=== PATIENT | male | born 1960 | race Caucasian/White ===

== ENCOUNTER 2019-07-17 04:33 | Emergency (ER) | payer SELFPAY ==
[2019-07-17 04:38] VITALS: BP 168/100; RESP 16; TEMP 36.8; O2SAT 100; BMI 20.9
--- NOTE | 2019-07-17 04:56 | ED_ITS ---
HPI - Abdominal Pain General: Chief Complaint: Abdominal Pain Stated Complaint: BLOOD IN STOOL Time Seen by Provider: 07/17/19 04:43 History of Present Illness: MD elicited complaint: abdominal pain Pertinent past history: gastrointestinal bleeding Onset (ago): day(s) (1) Quality: cramping Radiation: none Context: history of similar episodes Associated Symptoms: Reports constipation and nausea; Denies chills, dysuria, fever(s), hematuria and vomiting Review of Systems Const: Denies: fever or chills ENMT: Denies: painful swallowing, bleeding gums, dental pain, Change in hearing, nose bleeds, post nasal drip or facial/sinus pain Card: Denies: chest pain, palpitations, irregular heart rhythm, edema, swelling of feet/ankles, shortness of breath on exertion or shortness of breath when lying down Resp: Denies: shortness of breath, productive cough, non-productive cough or wheezing GI: Reports: nausea and constipation; Denies: vomiting : Denies: difficulty urinating, painful urination, urinary frequency, urinary urgency or blood in urine Musc: Denies: neck pain, back pain, redness or joint warmth Skin/Breast: Denies: rash, itching or redness Neuro: Denies: headache, dizziness, vertigo, confusion or seizure-like activity Psych: Denies: anxiety, visual hallucinations or auditory hallucinations PFSH ED PFSH: Statuses (acute, chronic, etc) shown below reflect problem list status as previously entered and may not be historically accurate Medical History (Updated 07/17/19 @ 06:17 by Husam Moreno DO) Back pain (Acute) BPH (benign prostatic hyperplasia) (Acute) Social History Smoking and tobacco status: never smoked Alcohol intake: never Physical Exam Const: GENERAL APPEARANCE: well developed ORIENTATION/CONSCIOUSNESS: Yes oriented to person, Yes oriented to place and Yes oriented to time HENMT: COMMON NORMALS: normocephalic, external ears normal and external nose normal HEAD & SCALP: normocephalic; no scalp tenderness FACE & SINUS: normal facial exam NOSE: external nose normal and no nasal discharge EXTERNAL EAR: Yes external ears normal Eye: COMMON NORMALS: PERRL, EOMs intact bilaterally and conjunctivae normal EYELID: eyelids normal CONJUNCTIVA: Yes conjunctivae normal PUPIL: Yes PERRL Neck/C-Spine: COMMON NORMALS: full ROM GENERAL: No tracheal deviation CERVICAL SPINE: Yes normal cervical lordosis and No cervical spine tenderness Chest: COMMONS NORMALS: inspection of chest normal CHEST: No tenderness Resp: COMMON NORMALS: clear to auscultation bilaterally EFFORT & INSPECTION: No tachypneic, No respiratory distress, No retractions, No uses accessory muscles and No tracheal deviation AUSCULTATION: clear to auscultation bilaterally, no rhonchi, no wheezes and lung sounds not diminished Cardio: COMMON NORMALS: regular rate and regular rhythm RATE: regular rate RHYTHM: regular rhythm HEART SOUNDS: no murmurs PERIPHERAL PULSES: rad ial pulses present GI: INSPECTION: No abdominal distension AUSCULTATION: No hyperactive bowel sounds and No hypoactive bowel sounds PALPATION: Yes tender, No guarding and No rigid PERCUSSION: no dullness to percussion and no tympanic to percussion : COMMON NORMALS: Yes no CVA tenderness BLADDER/KIDNEY EXAM: Yes no CVA tenderness Back/Pelvis: COMMON NORMALS: no CVA tenderness Neuro: SENSORIUM/ORIENTATION: Yes oriented to person, Yes oriented to place and Yes oriented to time Psych: COMMON NORMALS: mental status grossly normal Skin: COMMON NORMALS: no rashes or lesions noted GENERAL SKIN EXAM: no rashes or lesions noted Course ED course: 59-year-old male with multiple belly surgeries presents with belly pain, that essentially is resolved now, and bright red blood in his stool. His rectal exam was negative for blood, even occult blood. His belly pain is improved. His CT is essentially negative. Vital Signs: Vital signs: Vital Signs Temperature 98.2 F 07/17/19 04:38 Pulse Rate 61 07/17/19 06:52 Respiratory Rate 16 07/17/19 06:52 Blood Pressure 119/82 07/17/19 06:52 Pulse Oximetry 98 07/17/19 06:52 MDM - Abdominal Pain Lab Data: Labs: Lab Results 07/17/19 07/17/19 07/17/19 Range/Units 05:07 05:07 05:07 WBC 5.7 (4.0-10.0) 10^3/ uL RBC 4.72 (4.1-5.3) 10^6/u L Hgb 11.3 L (11.7-16.6) g/dL Hct 36.9 L (42.0-52.0) % MCV 78.2 L (80-94) fL MCH 23.9 L (28.0-34.0) pg MCHC 30.6 (30.0-36.0) g/dL RDW 14.7 (12.1-15.1) % Plt Count 278 (130-400) 10^3/c mm MPV 10.4 (7.4-10.4) fL Neut % (Auto) 47.5 % Lymph % (Auto) 41.0 % [place] % (Auto) 7.4 % Eos % (Auto) 3.0 % Baso % (Auto) 0.9 % Neut # (Auto) 2.7 (1.8-7.7) 10^3/u L Lymph # (Auto) 2.3 (0.8-4.8) 10^3/u L [place] # (Auto) 0.4 (0.2-0.9) 10^3/u L Eos # (Auto) 0.2 (0.0-0.8) 10^3/u L Baso # (Auto) 0.1 (0.0-0.1) 10^3/u L Nucleated RBC % (a uto) 0 % Nucleated RBCs # 0.0 /100WBC PT 15.00 H (10.5-13.3) SECO NDS INR 1.14 (0.8-1.2) APTT 30.5 (23.9-36.7) SECO NDS Sodium 141 (136-145) mmol/L Potassium 3.4 L (3.5-5.1) mmol/L Chloride 106 (98-107) mmol/L Carbon Dioxide 23 (22-29) mmol/L Anion Gap 15.4 (5-19) BUN 19 (6-20) mg/dL Creatinine 0.9 (0.7-1.2) mg/dL GFR Calculation 87.0 L (90-130) mL/min Glucose 134 H (74-109) mg/dL Calcium 9.7 (8.5-10.5) mg/dL Total Bilirubin 0.3 (0.15-1.2) mg/dL AST 15 (0-40) U/L ALT 10 (0-41) U/L Alkaline Phosphata se 46 (40-130) IU/L Total Protein 6.5 L (6.6-8.7) g/dL Albumin 4.4 (3.5-5.2) g/dL Globulin 2.1 (1.3-4.6) g/dL Lipase 62 H (13-60) U/L Discharge Plan Discharge Patient Disposition: Home, Self-Care Clinical Impression: GI (gastrointestinal bleed) Qualifiers: GI bleed type/associated pathology: unspecified gastrointestinal hemorrhage type Qualified Code(s): K92.2 - Gastrointestinal hemorrhage, unspecified Condition: Stable Prescriptions: No Action Botox 100 unit recon soln 200 unit IM .month RF: 0 docusate sodium 100 mg capsule 100 mg PO BID PRN (Reason: Constipation) RF: 0 acetaminophen [Tylenol Extra Strength] 500 mg tablet 500 mg PO Q4H PRN (Reason: Pain, Mild) RF: 0 tamsulosin [Flomax] 0.4 mg capsule 0.4 mg PO DAILY RF: 0 amitriptyline 75 mg tablet 75 mg PO DAILY RF: 0 ferrous sulfate 325 mg (65 mg iron) tablet 325 mg PO DAILY RF: 0 topiramate 50 mg tablet 50 mg PO BID RF: 0 cyclobenzaprine 10 mg tablet 10 mg PO BID PRN (Reason: Muscle Spasm) RF: 0 finasteride 5 mg tablet 5 mg PO ONCE Qty: 30 RF: 5 tramadol 50 mg tablet 50 mg PO DAILY PRN (Reason: pain) Qty: 30 RF: 0 propranolol 20 mg tablet 10 mg PO BID Qty: 60 RF: 11 Discharge Orders: Discharge Order (Routine); Ordered 07/17/19 Ordered By: Husam Moreno Referrals: Ulices Gerard DO [Primary Care Provider] - 4-7 days Discharge Diet: Advance as tolerated Discharge Activity: Increase activity as tolerated Patient Instructions: Gastrointestinal Bleeding (ED) Activity Restrictions/Additional Instructions: Return for fever greater than 100, worsening belly pain, continued rectal bleeding with passage of clots, vomiting, other concerning symptoms. Discharge Date/Time: 07/17/19 06:53 Coding Level of Care Code ED Necktie Centralizing Machine Operator for Augustina Oneill
--- NOTE | 2019-07-17 04:57 | CTR_ITS ---
PROCEDURE INFORMATION: Exam: CT Abdomen And Pelvis With Contrast Exam date and time: 07/17/2019 5:07 AM Age: 59 years old Clinical indication: Other: Blood in stool; Prior surgery; Surgery date: 6+ months; Surgery type: Gb; Additional info: Gi bleeding TECHNIQUE: Imaging protocol: Computed tomography of the abdomen and pelvis with intravenous contrast. Total DLP: 516.18 mGy-cm Radiation optimization: All CT scans at this facility use at least one of these dose optimization techniques: automated exposure control; mA and/or kV adjustment per patient size (includes targeted exams where dose is matched to clinical indication); or iterative reconstruction. Contrast material: OMNI 300; Contrast volume: 95 ml; Contrast route: IV; COMPARISON: No relevant prior studies available. FINDINGS: Liver: Normal. No mass. Gallbladder and bile ducts: Status post cholecystectomy. The common bile duct is mildly prominent measuring 9.1 mm in its midportion tapering to normal caliber within the pancreas. Pancreas: Normal. No ductal dilation. Spleen: Normal. No splenomegaly. Adrenals: Normal. No mass. Kidneys and ureters: There is a 1.5 cm hypoattenuation lesion seen on the lower pole of the right kidney compatible with a simple cyst. A 4 mm hypoattenuation lesions seen in the lower pole of the left kidney compatible with a simple cyst. Stomach and bowel: Suture material is seen along the gastric wall, the patient is status post gastric bypass. Suture material is seen within the small bowel. Appendix: Suture material is seen on the cecum likely representing appendectomy. Intraperitoneal space: Unremarkable. No free air. No significant fluid collection. Vasculature: Unremarkable. No abdominal aortic aneurysm. Lymph nodes: Unremarkable. No enlarged lymph nodes. Bladder: There is mild bladder wall thickening although the bladder is incompletely distended. Reproductive: Unremarkable as visualized. Bones/joints: Unremarkable. No acute fracture. Soft tissues: Unremarkable. CT/CT abdomen pelvis w con* [id number] IMPRESSION: 1. There are no acute abdominal findings. 2. Simple appearing renal cysts seen in the lower poles, the largest seen on the right measuring 1.5 cm. No further workup needed. COMMENT: Consistent with the [employer]'s Incidental Findings Committee white paper (J Am Rashida Radiol 2018): Any incidental cystic renal lesion classified in this report as too small to characterize or simple appearing is likely a benign cyst. No follow-up imaging is recommended for these lesions per consensus recommendations based on imaging criteria. Radiation Dose CTDIVOL = (mGy): DLP = 516.18 (mGy-cm)
[2019-07-17 05:14] LABS: Basophils # 0.1 10^3/uL (0.0-0.1); Basophils % 0.9 %; Eosinophils # 0.2 10^3/uL (0.0-0.8); Hematocrit 36.9 % (42.0-52.0); Hemoglobin 11.3 g/dL (11.7-16.6); Lymphocytes # 2.3 10^3/uL (0.8-4.8); Mean Corpuscular HGB Conc 30.6 g/dL (30.0-36.0); Mean Corpuscular Hemoglobin 23.9 pg (28.0-34.0); Mean Corpuscular Volume 78.2 fL (80-94); Mean Platelet Volume 10.4 fL (7.4-10.4); Monocytes # 0.4 10^3/uL (0.2-0.9); Monocytes % 7.4 %; Neutrophils # 2.7 10^3/uL (1.8-7.7); Neutrophils % 47.5 %; Nucleated Red Blood Cells % 0 %; Platelet Count 278 10^3/cmm (130-400); Red Blood Count 4.72 10^6/uL (4.1-5.3); Red Cell Distribution Width 14.7 % (12.1-15.1); White Blood Count 5.7 10^3/uL (4.0-10.0)
[2019-07-17] MEDS: iohexol 300 mg/mL 100 mL Btl IV (05:16)
[2019-07-17 05:34] LABS: Alanine Aminotransferase 10 U/L (0-41); Albumin Level 4.4 g/dL (3.5-5.2); Alkaline Phosphatase 46 IU/L (40-130); Anion Gap 15.4 (5-19); Aspartate Amino Transferase 15 U/L (0-40); Blood Urea Nitrogen 19 mg/dL (6-20); Calcium 9.7 mg/dL (8.5-10.5); Carbon Dioxide 23 mmol/L (22-29); Chloride 106 mmol/L (98-107); Globulin 2.1 g/dL (1.3-4.6); Glucose 134 mg/dL (74-109); Lipase 62 U/L (13-60); Potassium 3.4 mmol/L (3.5-5.1); Sodium 141 mmol/L (136-145); Total Bilirubin 0.3 mg/dL (0.15-1.2); Total Protein 6.5 g/dL (6.6-8.7)
[2019-07-17 05:40] LABS: INR 1.14 (0.8-1.2); Partial Thromboplastin Time 30.5 SECONDS (23.9-36.7)
[2019-07-17 06:13] VITALS: BP 119/82; PULSE 60; RESP 16; O2SAT 100
[2019-07-17 06:52] VITALS: BP 119/82; PULSE 61; RESP 16; O2SAT 98
== END 2019-07-17 06:53 | disposition home or self-care (01) ==
PROVIDERS: Emergency Provider Emergency Medicine; Family Provider Family Medicine; PCP Family Medicine
DX: K92.2 Gastrointestinal hemorrhage, unspecified (principal)
CPT/HCPCS: 36415; 74177; 80053; 83690; 85025; 85610; 85730; 99281; Q9967

== ENCOUNTER → 2019-07-21 10:06 | Outpatient (BNVA) | payer SELFPAY | PROVIDERS: Family Provider Family Medicine; PCP Family Medicine; Visit Provider Specialist | DX: G43.711 Chronic migraine without aura, intractable, with status migrainosus (principal) | CPT/HCPCS: 64615 ==

== ENCOUNTER → 2019-09-08 10:44 | Outpatient (BNVA) | payer SELFPAY | PROVIDERS: Family Provider Family Medicine; PCP Family Medicine; Visit Provider Family Medicine | DX: Z01.89 Encounter for other specified special examinations (principal) | CPT/HCPCS: 81001 ==

== ENCOUNTER → 2019-10-20 11:37 | Outpatient (BNVA) | payer SELFPAY | PROVIDERS: Family Provider Family Medicine; PCP Family Medicine; Visit Provider Specialist | DX: G43.711 Chronic migraine without aura, intractable, with status migrainosus (principal) | CPT/HCPCS: 64615 ==

== ENCOUNTER → 2020-01-12 09:47 | Outpatient (BNVA) | payer SELFPAY | PROVIDERS: Family Provider Family Medicine; PCP Family Medicine; Visit Provider Specialist | DX: G43.711 Chronic migraine without aura, intractable, with status migrainosus (principal) | CPT/HCPCS: 64615 ==

== ENCOUNTER → 2020-05-24 10:26 | Outpatient (BNVA) | payer SELFPAY | PROVIDERS: Family Provider Family Medicine; PCP Family Medicine; Visit Provider Specialist | DX: G43.711 Chronic migraine without aura, intractable, with status migrainosus (principal) | CPT/HCPCS: 64615; J0585 ==

== ENCOUNTER → 2020-11-08 08:32 | Outpatient (BNVA) | payer SELFPAY | PROVIDERS: Family Provider Family Medicine; PCP Family Medicine; Visit Provider Family Medicine | DX: D64.9 Anemia, unspecified (principal); F41.9 Anxiety disorder, unspecified | CPT/HCPCS: 36415; 80053; 85025 ==

== ENCOUNTER 2021-09-08 08:51 | Emergency (ER) | payer MEDICAID, SELFPAY ==
[2021-09-08 09:07] VITALS: BP 158/92; PULSE 57; RESP 16; TEMP 36.6; O2SAT 100; BMI 20.9
[2021-09-08 09:21] VITALS: BP 158/92; PULSE 59; RESP 16; O2SAT 100
--- NOTE | 2021-09-08 09:24 | ED_ITS ---
HPI - Male Genitourinary General: Chief complaint: General Medical Stated complaint: painful urination Time Seen by Provider: 09/08/21 08:54 Source: patient Mode of arrival: ambulatory Limitations: no limitations History of Present Illness: Patient is a 61-year-old male who presents to ED today stating yesterday he had an episode of penile pain and painful urination. He states currently he is not having any pain to his penis. Patient has chronic lower back pain that he sees his PCP Dr. Gerard for and is chronically on Tramadol-states this seems to be at baseline. Patient reports he thought the tip of his penis was swollen yesterday. He is not having any penile discharge or lesions. He is not having any scrotal/testicular pain, swelling, redness. No injury or trauma. He has not noticed any flank pains. He has no hematuria. Has not noticed any changes in odor. Onset (ago): hour(s) Duration: improved Relieving factors: none Exacerbating factors: urination Associated symptoms: Reports dysuria; Deny hematuria, nausea or vomiting Review of Systems Const: Denies: fever(s), chills, body aches, fatigue or malaise Card: Denies: chest pain Resp: Denies: dyspnea GI: Denies: abdominal pain, nausea, vomiting, diarrhea, change in bowel habits or change in stool character : Reports: dysuria; Denies: flank pain, difficulty urinating, urinary frequency, urinary urgency, change in urine stream, hematuria, genital lesions, penile discharge, testicular pain, testicular mass or scrotal swelling Musc: Reports: back pain (low back-chronic); Denies: neck pain, extremity pain or joint pain Skin/Breast: Denies: rash Neuro: Denies: headache(s), numbness in extremities, weakness in extremities, sensory changes or dizziness PFS ED PFSH: Medical History Anemia Back pain BPH (benign prostatic hyperplasia) Hypertension Migraine Tremor Family History Other Suicide Social History Alcohol intake: never History of recent travel: No Physical Exam Const: COMMON NORMALS: no acute distress, average body habitus, patient oriented x3, no limitations, healthy appearing, alert and well nourished Resp: COMMON NORMALS: normal respiratory effort and clear to auscultation bilaterally AUSCULTATION: clear to auscultation bilaterally Cardio: COMMON NORMALS: regular rate and regular rhythm RATE: regular rate RHYTHM: regular rhythm GI: COMMON NORMALS: Normal to inspection, nondistended, normoactive bowel sounds present, Soft to palpation, non-tender, No hepatosplenomegaly present and no masses INSPECTION: Yes scar (vertical midline scar) AUSCULTATION: Yes normoactive bowel sounds PALPATION: Yes Soft to palpation and Yes No hepatosplenomegaly present : COMMON NORMALS: Yes no CVA tenderness BLADDER/KIDNEY EXAM: Yes no CVA tenderness PENIS: normal penis and circumcised MEATUS: meatus normal and no meatla discharge SCROTUM: Yes testes descended bilaterally, No erythematous, No ecchymosis and No edematous TESTES: Yes testicular lie normal and No testicular swelling Back/Pelvis: COMMON NORMALS: no CVA tenderness, thoracic and lumbar spine normal to inspection, no thoracic nor lumbar tenderness and thoraco-lumbar ROM normal Extremity: COMMON NORMALS: normal to inspection GENERAL: Yes normal exam except as noted Neuro: APRIL COMA SCALE: document GCS findings April coma scale eye opening: Spontaneous [place] coma scale verbal response: Orientated April coma scale motor response: Obey commands April coma scale total score: 15 COMMON NORMALS: patient oriented x3, moves all extremities, no focal motor deficits, no sensory deficits noted and gait normal SENSORIUM/ORIENTATION: Yes alert Skin: COMMON NORMALS: no rashes or lesions noted GENERAL SKIN EXAM: no rashes or lesions noted Course Vital Signs: Vital signs: Vital Signs Temperature 97.9 F 09/08/21 09:07 Pulse Rate 59 L 09/08/21 09:21 Respiratory Rate 16 09/08/21 09:21 Blood Pressure 158/92 09/08/21 09:21 Pulse Oximetry 100 09/08/21 09:21 [facility] - Male Medical Decision Making Patient here with an episode of penile pain and painful urination yesterday. Patient is currently not having any penile pain. He states he felt like the tip of his penis was swollen yesterday. He has a normal genitalia exam today. Patient has not had any penile discharge. He denies sexual activity/new sexual partners/concerns for STDs. Patient is still able to urinate normally. He does take Flomax daily for BPH. He complained of some lower back pain however tells me this is chronic. Recommend he follow-up with Dr. Gerard in the next few days for re-evaluation if symptoms recur/persist. He was instructed to return to the emergency department for severe flank pain, fevers, repetitive episodes of vomiting, inability to urinate, hematuria, or any other concerns he may have. Lab Data : 09/08/21 09:30 09/08/21 09:30 Laboratory Results WBC 5.5 10^3/uL (4.0-10.0) 09/08/21 09:30 RBC 4.25 10^6/uL (4.1-5.3) 09/08/21 09:30 Hgb 11.9 g/dL (11.7-16.6) 09/08/21 09:30 Hct 38.0 % (42.0-52.0) L 09/08/21 09:30 MCV 89.4 fl (80-94) 09/08/21 09:30 MCH 28.0 pg (28.0-34.0) 09/08/21 09:30 MCHC 31.3 g/dL (30.0-36.0) 09/08/21 09:30 RDW 12.9 % (12.1-15.1) 09/08/21 09:30 Plt Count 262 10^3/cmm (130-400) 09/08/21 09:30 MPV 10.7 fL (7.4-10.4) H 09/08/21 09:30 Neut % (Auto) 55.9 % 09/08/21 09:30 Lymph % (Auto) 28.2 % 09/08/21 09:30 [place] % (Auto) 10.1 % 09/08/21 09:30 Eos % (Auto) 4.0 % 09/08/21 09:30 Baso % (Auto) 1.6 % 09/08/21 09:30 Neut # (Auto) 3.05 10^3/uL (1.8-7.7) 09/08/21 09:30 Lymph # (Auto) 1.5 10^3/uL (0.8-4.8) 09/08/21 09:30 [place] # (Auto) 0.6 10^3/uL (0.2-0.9) 09/08/21 09:30 Eos # (Auto) 0.2 10^3/uL (0.0-0.8) 09/08/21 09:30 Baso # (Auto) 0.1 10^3/uL (0.0-0.1) 09/08/21 09:30 Nucleated RBC % (auto) 0 % 09/08/21 09:30 Nucleated RBCs # 0.0 /100WBC 09/08/21 09:30 Sodium 140 mmol/L (136-145) 09/08/21 09:30 Potassium 3.7 mmol/L (3.5-5.1) 09/08/21 09:30 Chloride 105 mmol/L (98-107) 09/08/21 09:30 Carbon Dioxide 27 mmol/L (22-29) 09/08/21 09:30 Anion Gap 11.7 (5-19) 09/08/21 09:30 BUN 23 mg/dL (6-20) H 09/08/21 09:30 Creatinine 0.9 mg/dL (0.7-1.2) 09/08/21 09:30 GFR Calculation 86.4 mL/min (90-130) L 09/08/21 09:30 Glucose 94 mg/dL (65-115) 09/08/21 09:30 Calculated Osmolality 293 mOsm/kg (285-295) 09/08/21 09:30 Calcium 9.3 mg/dL (8.5-10.5) 09/08/21 09:30 Total Bilirubin 0.2 mg/dL (0.15-1.2) 09/08/21 09:30 AST 16 U/L (0-40) 09/08/21 09:30 ALT 19 U/L (0-41) 09/08/21 09:30 Alkaline Phosphatase 69 IU/L (40-130) 09/08/21 09:30 Total Protein 5.9 g/dL (6.6-8.7) L 09/08/21 09:30 Albumin 3.9 g/dL (3.5-5.2) 09/08/21 09:30 Globulin 2.0 g/dL (1.3-4.6) 09/08/21 09:30 Urine Color Yellow (Yellow) 09/08/21 09:56 Urine Appearance Clear (CLEAR) 09/08/21 09:56 Urine pH 7 (5-7) 09/08/21 09:56 Ur Specific [place] 1.015 (1.005-1.030) 09/08/21 09:56 Urine Protein Neg (Negative) 09/08/21 09:56 Urine Glucose (UA) Norm (Normal) 09/08/21 09:56 Urine Ketones Negative (Negative) 09/08/21 09:56 Urine Blood Neg (Negative) 09/08/21 09:56 Urine Nitrate Negative (Negative) 09/08/21 09:56 Urine Bilirubin Neg (Negative) 09/08/21 09:56 Urine Urobilinogen Norm mg/dL (Negative) 09/08/21 09:56 Ur Leukocyte Esterase Negative (Negative) 09/08/21 09:56 Discharge Plan Discharge Patient Disposition: Home Clinical Impression: Penile pain Condition: Stable Prescriptions: No Action Excedrin Extra Strength 250-250-65 mg tablet 1 tab PO Q6H PRN0RF Complete Nutritional Drink 0.04-1.05 gram-kcal/mL liquid PO DAILY 0RF topiramate 50 mg tablet 50 mg PO BID Qty: 60 11RF ferrous sulfate 325 mg (65 mg iron) tablet 325 mg PO DAILY Qty: 30 11RF cyclobenzaprine 10 mg tablet 10 mg PO BID PRN (Reason: Muscle Spasm) Qty: 60 3RF Botox 100 unit recon soln 200 unit IM .month 0RF docusate sodium 100 mg capsule 100 mg PO BID PRN (Reason: Constipation) 0RF acetaminophen [Tylenol Extra Strength] 500 mg tablet 500 mg PO Q4H PRN (Reason: Pain, Mild) 0RF amitriptyline 75 mg tablet 75 mg PO DAILY Qty: 30 11RF chlorpromazine 10 mg tablet 10 mg PO TID Qty: 90 3RF tramadol 50 mg tablet 50 mg PO DAILY PRN (Reason: pain) Qty: 30 0RF promethazine-DM 6.25-15 mg/5 mL syrup 5 ml PO Q6H PRN (Reason: cough) Qty: 118 1RF propranolol 20 mg tablet 10 mg PO BID Qty: 60 11RF tamsulosin 0.4 mg capsule See Rx Instructions .ROUTE .COMPLEX Qty: 60 11RF Dose Instruction: TAKE 2 CAPSULES BY MOUTH ONCE DAILY Rx Instructions: TAKE 2 CAPSULES BY MOUTH ONCE DAILY finasteride 5 mg tablet See Rx Instructions .ROUTE .COMPLEX Qty: 30 11RF Dose Instruction: TAKE ONE TABLET BY MOUTH ONCE DAILY Rx Instructions: TAKE ONE TABLET BY MOUTH ONCE DAILY Discharge Orders: Discharge ED (Routine); Ordered 09/08/21 Ordered By: Qiana Espinal Referrals: Ulices Gerard, [Primary Care Provider] - Activity Restrictions/Additional Instructions: As we discussed please follow-up with your primary care provider this week if symptoms return or persist. You need to return to the emergency department for severe flank pain, abdominal pain, inability to urinate, blood in your urine, fevers, repetitive episodes of vomiting, severe scrotal/testicular pain, or any other concerns you may have. Coding Level of Care Code ED Retail Wireless Sales Consultant for Augustina Fwd Exam Comprehensive
[2021-09-08 10:11] LABS: Add Urine Microscopic? NO; Charge for UA Resulting for Rev
[2021-09-08 10:13] LABS: Basophils # 0.1 10^3/uL (0.0-0.1); Basophils % 1.6 %; Eosinophils # 0.2 10^3/uL (0.0-0.8); Hemoglobin 11.9 g/dL (11.7-16.6); Lymphocytes # 1.5 10^3/uL (0.8-4.8); Lymphocytes % 28.2 %; Mean Corpuscular HGB Conc 31.3 g/dL (30.0-36.0); Mean Corpuscular Volume 89.4 fl (80-94); Mean Platelet Volume 10.7 fL (7.4-10.4); Monocytes # 0.6 10^3/uL (0.2-0.9); Monocytes % 10.1 %; Neutrophils # 3.05 10^3/uL (1.8-7.7); Neutrophils % 55.9 %; Nucleated Red Blood Cells % 0 %; Platelet Count 262 10^3/cmm (130-400); Red Blood Count 4.25 10^6/uL (4.1-5.3); Red Cell Distribution Width 12.9 % (12.1-15.1); White Blood Count 5.5 10^3/uL (4.0-10.0)
[2021-09-08 10:36] LABS: Alanine Aminotransferase 19 U/L (0-41); Albumin Level 3.9 g/dL (3.5-5.2); Alkaline Phosphatase 69 IU/L (40-130); Anion Gap 11.7 (5-19); Aspartate Amino Transferase 16 U/L (0-40); Blood Urea Nitrogen 23 mg/dL (6-20); Calcium 9.3 mg/dL (8.5-10.5); Carbon Dioxide 27 mmol/L (22-29); Chloride 105 mmol/L (98-107); Glomerular Filtration Rate 86.4 mL/min (90-130); Glucose 94 mg/dL (65-115); Osmolality Calculated 293 mOsm/kg (285-295); Potassium 3.7 mmol/L (3.5-5.1); Sodium 140 mmol/L (136-145); Total Bilirubin 0.2 mg/dL (0.15-1.2); Total Protein 5.9 g/dL (6.6-8.7)
[2021-09-08 10:51] LABS: Urine Appearance Clear (CLEAR); Urine Color Yellow (Yellow)
[2021-09-08 10:52] LABS: Bilirubin Urine Neg (Negative); Blood Urine Neg (Negative); Glucose Urine UA Norm (Normal); Ketones Urine Negative (Negative); Leukocyte Esterase Urine Negative (Negative); Nitrate Urine Negative (Negative); Protein Urine Neg (Negative); Specific Gravity, Urine 1.015 (1.005-1.030); Urobilinogen Urine Norm (Negative); pH Urine 7 (5-7)
== END 2021-09-08 11:28 | disposition home or self-care (01) ==
PROVIDERS: Emergency Provider Physician Assistant; PCP Family Medicine
DX: N48.89 Other specified disorders of penis (principal); I10 Essential (primary) hypertension
CPT/HCPCS: 80053; 81003; 85025; 99283

== ENCOUNTER 2021-10-22 03:28 | Emergency (ER) | payer MEDICAID, SELFPAY ==
[2021-10-22] VITALS (7 sets, daily range): BP systolic 124–150; BP diastolic 78–89; PULSE 48–62; RESP 14–18; TEMP 36.3; O2SAT 97–100; BMI 20.2
--- NOTE | 2021-10-22 03:35 | ECG_ITS ---
[facility] Test Date: 2021-10-22 Pat Name: Philippe Stewart Department: Room: Gender: Male Can Technician: : 1960 Requested By: Radha Man Order Number: [id number] Whitney MD: Braxton Keane M.D. Measurements Intervals [place] Rate: 53 P: 50 WI: 135 QRS: 78 QRSD: 113 T: 45 QT: 388 QTc: 367 Interpretive Statements SINUS BRADYCARDIA MODERATE INTRAVENTRICULAR CONDUCTION DELAY [110+ ms QRS DURATION] Compared to ECG 07/09/2014 22:34:14 NO SIGNIFICANT CHANGES SEEN Electronically Signed On 10-22-2021 22:32:21 CDT by Braxton Keane M.D. [id number] f
--- NOTE | 2021-10-22 03:37 | XRR_ITS ---
PROCEDURE INFORMATION: Exam: XR Chest Exam date and time: 10/22/2021 3:39 AM Age: 61 years old Clinical indication: Sternal or substernal pain; Additional info: Cp TECHNIQUE: Imaging protocol: XR of the chest. Views: 1 view. COMPARISON: CT abdomen pelvis w con* [id number] 07/17/2019 5:44 AM FINDINGS: Lungs: No focal airspace disease. Pleural spaces: Unremarkable. No pleural effusion. No pneumothorax. Heart/Mediastinum: Cardiomediastinal silhouette is within normal limits. Bones/joints: Unremarkable. XR/XR chest 1V portable [id number] IMPRESSION: No acute cardiopulmonary abnormality.
--- NOTE | 2021-10-22 03:37 | ECG_ITS ---
[facility] Test Date: 2021-10-22 Pat Name: Philippe Stewart Department: Room: Gender: Male Loan Workout Officer: : 1960 Requested By: Radha Man Order Number: [id number] Whitney MD: Braxton Keane M.D. Measurements Intervals [place] Rate: 49 P: 57 MD: 143 QRS: 77 QRSD: 110 T: 45 QT: 403 QTc: 366 Interpretive Statements SINUS BRADYCARDIA Compared to ECG 07/09/2014 22:34:14 Intraventricular conduction delay no longer present Electronically Signed On 10-22-2021 20:50:25 CDT by Braxton Keane M.D. [id number]
--- NOTE | 2021-10-22 03:42 | W.ED.CHESTPA ---
HPI - Chest Pain General: Chief Complaint: Chest Pain Stated Complaint: Chest Pains Time Seen by Provider: 10/22/21 03:40 Source: patient Mode of arrival: ambulatory Limitations: no limitations History of Present Illness: 61-year-old male states that since 10 PM last night been having some sharp pains in the left side of his chest. He states that its been constant nature worse with palpation improved with rest he is going through mild abdominal pain as well denies any dyspnea denies any diaphoresis denies any vomiting or diarrhea Associated symptoms: Deny abdominal pain, dyspnea, fever(s), nausea or vomiting Review of Systems Const: Denies: fever(s), chills, body aches or change in appetite Eyes: Denies: blurry vision or eye discomfort ENMT: Denies: throat pain or dental pain Card: Reports: chest pain Resp: Denies: dyspnea GI: Denies: abdominal pain, nausea, vomiting or diarrhea : Denies: dysuria Musc: Denies: neck pain or back pain Skin/Breast: Denies: rash Neuro: Denies: headache(s) Psych: Denies: depression Keyur/Lymph: Denies: easy bruising All/Imm: Denies: urticaria PFSH ED PFSH: Medical History Anemia Back pain BPH (benign prostatic hyperplasia) Hypertension Migraine Tremor Family History Other Suicide Social History Alcohol intake: never History of recent travel: No Physical Exam Const: COMMON NORMALS: no acute distress, patient oriented x3 and healthy appearing HENMT: COMMON NORMALS: normocephalic and atraumatic HEAD & SCALP: normocephalic and atraumatic Eye: COMMON NORMALS: Equal, round and reactive pupils present and EOMs intact bilaterally PUPIL: Yes Equal, round and reactive pupils present Neck/C-Spine: COMMON NORMALS: full ROM and supple Chest: COMMONS NORMALS: normal inspection of the chest and normal palpation of entire chest wall Resp: COMMON NORMALS: normal respiratory effort, No retractions, No use of accessory muscles and clear to auscultation bilaterally AUSCULTATION: clear to auscultation bilaterally Cardio: COMMON NORMALS: regular rate, regular rhythm and No murmurs present (Cardio) RATE: regular rate RHYTHM: regular rhythm GI: COMMON NORMALS: Normal to inspection, nondistended, normoactive bowel sounds present, Soft to palpation, non-tender and no masses PALPATION: Yes Soft to palpation Extremity: COMMON NORMALS: normal to inspection and full ROM Neuro: COMMON NORMALS: patient oriented x3, moves all extremities and no focal motor deficits Psych: COMMON NORMALS: mental status grossly normal, Normal thought process present and cooperative THOUGHT PROCESS: Normal thought process present Skin: COMMON NORMALS: no rashes or lesions noted and no wounds GENERAL SKIN EXAM: no rashes or lesions noted Course Vital Signs: Vital signs: Vital Signs Temperature 97.4 F L 10/22/21 03:40 Pulse Rate 62 10/22/21 06:00 Respiratory Rate 18 10/22/21 06:00 Blood Pressure 139/83 10/22/21 06:00 Pulse Oximetry 100 10/22/21 06:00 MDM - Chest Pain Medical Decision Making Patient presents here with chest pains atypical in nature he is tender on the left side of his chest likely muscle skeletal initial repeat troponins are normal no signs of acute coronary syndrome no signs of pulmonary embolism or dissection he is stable for discharge return if worsening. Lab Data : 10/22/21 03:42 10/22/21 03:42 Radiology Impressions Chest X-Ray 10/22/21 03:37 IMPRESSION: No acute cardiopulmonary abnormality. Laboratory Results WBC 5.0 10^3/uL (4.0-10.0) 10/22/21 03:42 RBC 4.26 10^6/uL (4.1-5.3) 10/22/21 03:42 Hgb 11.1 g/dL (11.7-16.6) L 10/22/21 03:42 Hct 36.5 % (42.0-52.0) L 10/22/21 03:42 MCV 85.7 fl (80-94) 10/22/21 03:42 MCH 26.1 pg (28.0-34.0) L 10/22/21 03:42 MCHC 30.4 g/dL (30.0-36.0) 10/22/21 03:42 RDW 12.5 % (12.1-15.1) 10/22/21 03:42 Plt Count 233 10^3/cmm (130-400) 10/22/21 03:42 MPV 11.2 fL (7.4-10.4) H 10/22/21 03:42 Neut % (Auto) 42.0 % 10/22/21 03:42 Lymph % (Auto) 43.8 % 10/22/21 03:42 [place] % (Auto) 8.8 % 10/22/21 03:42 Eos % (Auto) 4.0 % 10/22/21 03:42 Baso % (Auto) 1.2 % 10/22/21 03:42 Neut # (Auto) 2.11 10^3/uL (1.8-7.7) 10/22/21 03:42 Lymph # (Auto) 2.2 10^3/uL (0.8-4.8) 10/22/21 03:42 [place] # (Auto) 0.4 10^3/uL (0.2-0.9) 10/22/21 03:42 Eos # (Auto) 0.2 10^3/uL (0.0-0.8) 10/22/21 03:42 Baso # (Auto) 0.1 10^3/uL (0.0-0.1) 10/22/21 03:42 Nucleated RBC % (auto) 0 % 10/22/21 03:42 Nucleated RBCs # 0.0 /100WBC 10/22/21 03:42 Sodium 140 mmol/L (136-145) 10/22/21 03:42 Potassium 3.5 mmol/L (3.5-5.1) 10/22/21 03:42 Chloride 103 mmol/L (98-107) 10/22/21 03:42 Carbon Dioxide 29 mmol/L (22-29) 10/22/21 03:42 Anion Gap 11.5 (5-19) 10/22/21 03:42 BUN 18 mg/dL (6-20) 10/22/21 03:42 Creatinine 1.0 mg/dL (0.7-1.2) 10/22/21 03:42 GFR Calculation 76.5 mL/min (90-130) L 10/22/21 03:42 Glucose 93 mg/dL (65-115) 10/22/21 03:42 Calculated Osmolality 292 mOsm/kg (285-295) 10/22/21 03:42 Calcium 8.6 mg/dL (8.5-10.5) 10/22/21 03:42 Total Bilirubin 0.2 mg/dL (0.15-1.2) 10/22/21 03:42 AST 16 U/L (0-40) 10/22/21 03:42 ALT 12 U/L (0-41) 10/22/21 03:42 Alkaline Phosphatase 66 IU/L (40-130) 10/22/21 03:42 Troponin T Baseline 8 ng/L (0-15) 10/22/21 03:42 Troponin T 120 Minute 6.32 ng/L (0-15) 10/22/21 04:57 Delta Troponin T -1.68 ABS# (0-10) L 10/22/21 04:57 Total Protein 6.1 g/dL (6.6-8.7) L 10/22/21 03:42 Albumin 4.0 g/dL (3.5-5.2) 10/22/21 03:42 Globulin 2.1 g/dL (1.3-4.6) 10/22/21 03:42 Lipase 43 U/L (13-60) 10/22/21 03:42 EKG Data EKG 1: I personally reviewed and interpreted this EKG as follows: EKG interpretation date: 10/22/21 EKG interpretation time: 03:35 Interpretation: Sinus bradycardia heart rate [address] or T wave abnormalities QRS 110 QTC 374 EKG 2: I personally reviewed and interpreted this EKG as follows: EKG interpretation date: 10/22/21 EKG interpretation time: 05:04 Interpretation: sinus rosie hr [address] or t wave abnormalities qrs 108 qtc 382 Discharge Plan Discharge Patient Disposition: Home Clinical Impression: Chest pain Qualifiers: Chest pain type: unspecified Qualified Code(s): R07.9 - Chest pain, unspecified Condition: Stable Prescriptions: No Action Excedrin Extra Strength 250-250-65 mg tablet 1 tab PO Q6H PRN0RF Complete Nutritional Drink 0.04-1.05 gram-kcal/mL liquid PO DAILY 0RF topiramate 50 mg tablet 50 mg PO BID Qty: 60 11RF ferrous sulfate 325 mg (65 mg iron) tablet 325 mg PO DAILY Qty: 30 11RF cyclobenzaprine 10 mg tablet 10 mg PO BID PRN (Reason: Muscle Spasm) Qty: 60 3RF Botox 100 unit recon soln 200 unit IM .month 0RF docusate sodium 100 mg capsule 100 mg PO BID PRN (Reason: Constipation) 0RF acetaminophen [Tylenol Extra Strength] 500 mg tablet 500 mg PO Q4H PRN (Reason: Pain, Mild) 0RF amitriptyline 75 mg tablet 75 mg PO DAILY Qty: 30 11RF chlorpromazine 10 mg tablet 10 mg PO TID Qty: 90 3RF tramadol 50 mg tablet 50 mg PO DAILY PRN (Reason: pain) Qty: 30 0RF promethazine-DM 6.25-15 mg/5 mL syrup 5 ml PO Q6H PRN (Reason: cough) Qty: 118 1RF propranolol 20 mg tablet 10 mg PO BID Qty: 60 11RF tamsulosin 0.4 mg capsule See Rx Instructions .ROUTE .COMPLEX Qty: 60 11RF Dose Instruction: TAKE 2 CAPSULES BY MOUTH ONCE DAILY Rx Instructions: TAKE 2 CAPSULES BY MOUTH ONCE DAILY finasteride 5 mg tablet See Rx Instructions .ROUTE .COMPLEX Qty: 30 11RF Dose Instruction: TAKE ONE TABLET BY MOUTH ONCE DAILY Rx Instructions: TAKE ONE TABLET BY MOUTH ONCE DAILY Discharge Orders: Discharge ED (Routine); Ordered 10/22/21 Ordered By: Radha Man Referrals: Ulices Gerard DO [Primary Care Provider] - 1-3 days Discharge Diet: Advance as tolerated Discharge Activity: Resume usual activity Patient Instructions: Chest Pain (ED) Coding Level of Care Code ED Medical Scientific Officer for Chg Fwd Exam Comprehensive
[2021-10-22] MEDS: aspirin 81 mg Chew Tablet 324 MG PO (03:57)
[2021-10-22 04:08] LABS: Basophils # 0.1 10^3/uL (0.0-0.1); Basophils % 1.2 %; Eosinophils # 0.2 10^3/uL (0.0-0.8); Hematocrit 36.5 % (42.0-52.0); Hemoglobin 11.1 g/dL (11.7-16.6); Lymphocytes # 2.2 10^3/uL (0.8-4.8); Lymphocytes % 43.8 %; Mean Corpuscular HGB Conc 30.4 g/dL (30.0-36.0); Mean Corpuscular Hemoglobin 26.1 pg (28.0-34.0); Mean Corpuscular Volume 85.7 fl (80-94); Mean Platelet Volume 11.2 fL (7.4-10.4); Monocytes # 0.4 10^3/uL (0.2-0.9); Monocytes % 8.8 %; Neutrophils # 2.11 10^3/uL (1.8-7.7); Nucleated Red Blood Cells % 0 %; Platelet Count 233 10^3/cmm (130-400); Red Blood Count 4.26 10^6/uL (4.1-5.3); Red Cell Distribution Width 12.5 % (12.1-15.1)
[2021-10-22 04:24] LABS: Alanine Aminotransferase 12 U/L (0-41); Alkaline Phosphatase 66 IU/L (40-130); Anion Gap 11.5 (5-19); Aspartate Amino Transferase 16 U/L (0-40); Blood Urea Nitrogen 18 mg/dL (6-20); Calcium 8.6 mg/dL (8.5-10.5); Carbon Dioxide 29 mmol/L (22-29); Chloride 103 mmol/L (98-107); Globulin 2.1 g/dL (1.3-4.6); Glomerular Filtration Rate 76.5 mL/min (90-130); Glucose 93 mg/dL (65-115); Lipase 43 U/L (13-60); Osmolality Calculated 292 mOsm/kg (285-295); Potassium 3.5 mmol/L (3.5-5.1); Sodium 140 mmol/L (136-145); Total Bilirubin 0.2 mg/dL (0.15-1.2); Total Protein 6.1 g/dL (6.6-8.7)
[2021-10-22 04:25] LABS: Troponin(5th) Baseline 8 ng/L (0-15)
--- NOTE | 2021-10-22 05:37 | ECG_ITS ---
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 Measurements Intervals [place] Rate: 52 P: 59 [place]: 146 QRS: 75 QRSD: 108 T: 54 QT: 402 QTc: 376 Interpretive Statements SINUS BRADYCARDIA Compared to ECG 07/09/2014 22:34:14 Sinus rhythm no longer present Intraventricular conduction delay no longer present Electronically Signed On 10-22-2021 20:55:53 CDT by Braxton Keane M.D. [id number]
[2021-10-22 05:52] LABS: Troponin 5 2HR 6.32 ng/L (0-15)
[2021-10-22 05:54] LABS: Troponin 5 2HR Delta -1.68 ABS# (0-10)
== END 2021-10-22 06:00 | disposition home or self-care (01) ==
PROVIDERS: Emergency Provider Emergency Medicine; PCP Family Medicine
DX: R07.9 Chest pain, unspecified (principal); Z79.891 Long term (current) use of opiate analgesic
CPT/HCPCS: 71045; 80053; 83690; 84484; 85025; 93005; 99284

== ENCOUNTER 2021-10-28 02:45 | Emergency (ER) | payer MEDICAID, SELFPAY ==
[2021-10-28] VITALS (11 sets, daily range): BP systolic 115–148; BP diastolic 72–83; PULSE 58–63; RESP 15–20; TEMP 36.6–36.8; O2SAT 93–98; BMI 20.7
--- NOTE | 2021-10-28 03:08 | ECG_ITS ---
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 Measurements Intervals [place] Rate: 58 P: 32 FL: 132 QRS: 69 QRSD: 108 T: 51 QT: 416 QTc: 409 Interpretive Statements SINUS BRADYCARDIA MODERATE ST DEPRESSION [0.05+ mV ST DEPRESSION] Compared to ECG 10/22/2021 05:04:52 ST (T wave) deviation now present Electronically Signed On 10-28-2021 21:34:34 CDT by Sofia Maciel M.D. [id number]
--- NOTE | 2021-10-28 03:15 | CTR_ITS ---
PROCEDURE INFORMATION: Exam: CT Abdomen And Pelvis Without Contrast Exam date and time: 10/28/2021 3:46 AM Age: 61 years old Clinical indication: Abdominal pain; Flank; Left; Prior surgery; Surgery date: 6+ months; Surgery type: Gb; Additional info: Left flank pain TECHNIQUE: Imaging protocol: Computed tomography of the abdomen and pelvis without contrast. Radiation optimization: All CT scans at this facility use at least one of these dose optimization techniques: automated exposure control; mA and/or kV adjustment per patient size (includes targeted exams where dose is matched to clinical indication); or iterative reconstruction. COMPARISON: CT abdomen pelvis w con* [id number] 07/17/2019 5:44 AM RADIATION DOSE METRICS: Total DLP (mGy-cm): 642 FINDINGS: Lungs: The visualized lung bases demonstrate no focal airspace opacification or pleural effusion. Heart: The visualized heart is within normal limits for size. There is no evidence of pericardial abnormality. Liver: The liver is normal in size and contour. Gallbladder and bile ducts: The gallbladder is surgically absent. Pancreas: The pancreas appears normal. Spleen: The spleen appears normal. Adrenal glands: The adrenals appear normal. Kidneys and ureters: The kidneys empty into non-dilated ureters. No renal or ureteral stones are identified. No perinephric or periureteral fat tissue stranding is identified. Fluid density cyst in the lower pole the right kidney. Stomach and bowel: The stomach is significantly distended with ingested material, occupying the majority of the left abdomen and extending into the pelvis. Postsurgical changes along the medial margin of the stomach wall noted. No stomach wall thickening or surrounding inflammatory changes identified. Postsurgical changes in the small bowel noted. No abnormal small bowel dilatation identified. Colonic diverticulosis without signs of acute diverticulitis. Appendix: The appendix is not readily identified and may be surgically absent. Intraperitoneal space: No ascites or significant fluid collection. Vasculature: The aorta is nonaneurysmal. The IVC appears normal. Lymph nodes: There are no enlarged lymph nodes. Urinary bladder: The urinary bladder is not well distended, therefore not well evaluated. Reproductive: The prostate is unremarkable. The seminal vesicles are unremarkable. Bones/joints: Review of the bone windows demonstrates no significant abnormality. Soft tissues: Unremarkable. CT/CT kidney stone [id number] IMPRESSION: 1. The stomach is significantly distended with ingested material, occupying the majority of the left abdomen and extending into the pelvis. Postsurgical changes along the medial margin of the stomach wall noted. Findings may be related to gastric outlet obstruction. 2. No renal or ureteral stones identified. No signs of urinary obstruction. 3. Colonic diverticulosis without signs of acute diverticulitis. COMMENTS: 1. Evaluation of solid organs and vascular structures is limited as no IV contrast was administered. 2. Consistent with the [place] [employer]'s Incidental Findings Committee white paper (J Am Rashida Radiol 2018): Any incidental renal lesion less than 1 cm or classified as too small to characterize, or any incidental cystic renal lesion characterized as simple-appearing, is likely benign. No follow-up imaging is recommended for these lesions per consensus recommendations based on imaging criteria.
--- NOTE | 2021-10-28 03:17 | ED_ITS ---
Documented by User: Husam Moreno DO 10/28/21 07:04 HPI - Abdominal Pain General: Chief Complaint: Abdominal Pain Stated Complaint: Left side ABD/back pain Time Seen by Provider: 10/28/21 02:57 Source: patient History of Present Illness: 61-year-old male who was seen last week for chest discomfort. He presents this morning with left-sided upper abdominal and lower chest discomfort. He denies any dysuria. He states he is mildly short of breath. Pain is reproducible. He is having a burning sensation in his lower chest as well. He denies hematuria. He had gastric surgery a few years ago for a ulcer he says. MD elicited complaint: abdominal pain and flank pain Onset (ago): day(s) Pain Consistency: intermittent Location: LUQ and L flank Severity: moderate Quality: aching Radiation: none Migration to: no migration Exacerbating factors: nothing Relieving factors: nothing Associated Symptoms: Reports nausea; Denies belching, bloating, coffee ground emesis, diarrhea, dysuria, fever(s), hematuria and vomiting Review of Systems Const: Denies: fever(s) Eyes: Denies: change in vision ENMT: Denies: throat pain Card: Reports: chest pain; Denies: palpitations Resp: Denies: dyspnea, productive cough or non-productive cough GI: Reports: nausea; Denies: vomiting, coffee ground emesis, diarrhea, bloating or belching : Denies: dysuria or hematuria [facility] ED PFSH: Medical History Anemia Back pain BPH (benign prostatic hyperplasia) Hypertension Migraine Tremor Family History Other Suicide Social History Alcohol intake: never History of recent travel: No Physical Exam Const: GENERAL APPEARANCE: cooperative HENMT: COMMON NORMALS: normocephalic and Normal external nose present HEAD & SCALP: normocephalic FACE & SINUS: normal facial exam NOSE: Normal external nose present Eye: COMMON NORMALS: Equal, round and reactive pupils present and EOMs intact bilaterally PUPIL: Yes Equal, round and reactive pupils present Chest: COMMONS NORMALS: normal inspection of the chest CHEST: Yes Symmetrical chest wall rise Resp: COMMON NORMALS: normal respiratory effort, No use of accessory muscles and clear to auscultation bilaterally AUSCULTATION: clear to auscultation bilaterally Cardio: COMMON NORMALS: regular rate and regular rhythm RATE: regular rate RHYTHM: regular rhythm GI: COMMON NORMALS: Normal to inspection, nondistended, normoactive bowel sounds present PALPATION: Yes Tenderness to palpation present (GI) Details: LUQ : BLADDER/KIDNEY EXAM: Yes CVA tenderness on the left Back/Pelvis: GENERAL BACK: Yes CVA tenderness Extremity: COMMON NORMALS: normal to inspection Neuro: APRIL COMA SCALE: document GCS findings April coma scale eye opening: Spontaneous April coma scale verbal response: Orientated April coma scale motor response: Obey commands April coma scale total score: 15 Course Vital Signs: Vital signs: Vital Signs Temperature 98 F 10/28/21 02:56 Pulse Rate 59 L 10/28/21 07:30 Respiratory Rate 16 10/28/21 07:30 Blood Pressure 136/83 10/28/21 07:30 Pulse Oximetry 96 10/28/21 07:30 MDM - Abdominal Pain Medical Decision Making 61-year-old male with left upper quadrant and left flank pain. CBC is normal. BMP is normal. Liver enzymes are normal as well. CT shows a significantly distended stomach extending into the pelvis. This is indicative of gastric outlet obstruction. It is likely partial, as there is fluid and stool in the small and large bowel. His stomach, nevertheless, it is quite large. I spoke with our surgeon. Recommendations are NG decompression, followed by potentially EGD and stenting if necessary. We do not have gastroenterology or stenting a vailability at this facility. The patient had his previous gastric surgery at [facility] in [place] 2 years ago. I have a call out to them for potential transfer. Lab Data : 10/28/21 03:35 10/28/21 03:35 Labs/Radiology: Radiology Impressions Abdomen/Pelvis CT 10/28/21 03:15 IMPRESSION: 1. The stomach is significantly distended with ingested material, occupying the majority of the left abdomen and extending into the pelvis. Postsurgical changes along the medial margin of the stomach wall noted. Findings may be related to gastric outlet obstruction. 2. No renal or ureteral stones identified. No signs of urinary obstruction. 3. Colonic diverticulosis without signs of acute diverticulitis. COMMENTS: 1. Evaluation of solid organs and vascular structures is limited as no IV contrast was administered. 2. Consistent with the [employer] [place] [employer]'s Incidental Findings Committee white paper (J Am Rashida Radiol 2018): Any incidental renal lesion less than 1 cm or classified as too small to characterize, or any incidental cystic renal lesion characterized as simple-appearing, is likely benign. No follow-up imaging is recommended for these lesions per consensus recommendations based on imaging criteria. Laboratory Results WBC 5.4 10^3/uL (4.0-10.0) 10/28/21 03:35 RBC 4.53 10^6/uL (4.1-5.3) 10/28/21 03:35 Hgb 11.7 g/dL (11.7-16.6) 10/28/21 03:35 Hct 37.9 % (42.0-52.0) L 10/28/21 03:35 MCV 83.7 fl (80-94) 10/28/21 03:35 MCH 25.8 pg (28.0-34.0) L 10/28/21 03:35 MCHC 30.9 g/dL (30.0-36.0) 10/28/21 03:35 RDW 12.8 % (12.1-15.1) 10/28/21 03:35 Plt Count 246 10^3/cmm (130-400) 10/28/21 03:35 MPV 11.5 fL (7.4-10.4) H 10/28/21 03:35 Neut % (Auto) 50.0 % 10/28/21 03:35 Lymph % (Auto) 34.3 % 10/28/21 03:35 [place] % (Auto) 11.2 % 10/28/21 03:35 Eos % (Auto) 2.8 % 10/28/21 03:35 Baso % (Auto) 1.5 % 10/28/21 03:35 Neut # (Auto) 2.72 10^3/uL (1.8-7.7) 10/28/21 03:35 Lymph # (Auto) 1.9 10^3/uL (0.8-4.8) 10/28/21 03:35 [place] # (Auto) 0.6 10^3/uL (0.2-0.9) 10/28/21 03:35 Eos # (Auto) 0.2 10^3/uL (0.0-0.8) 10/28/21 03:35 Baso # (Auto) 0.1 10^3/uL (0.0-0.1) 10/28/21 03:35 Nucleated RBC % (auto) 0 % 10/28/21 03:35 Nucleated RBCs # 0.0 /100WBC 10/28/21 03:35 PT 14.90 SECONDS (12.1-14.9) 10/28/21 09:30 INR 1.14 (0.8-1.2) 10/28/21 09:30 APTT 30.9 SECONDS (23.9-36.7) 10/28/21 09:30 Sodium 143 mmol/L (136-145) 10/28/21 03:35 Potassium 3.6 mmol/L (3.5-5.1) 10/28/21 03:35 Chloride 102 mmol/L (98-107) 10/28/21 03:35 Carbon Dioxide 28 mmol/L (22-29) 10/28/21 03:35 Anion Gap 16.6 (5-19) 10/28/21 03:35 BUN 20 mg/dL (6-20) 10/28/21 03:35 Creatinine 1.0 mg/dL (0.7-1.2) 10/28/21 03:35 GFR Calculation 76.5 mL/min (90-130) L 10/28/21 03:35 Glucose 96 mg/dL (65-115) 10/28/21 03:35 Calculated Osmolality 298 mOsm/kg (285-295) H 10/28/21 03:35 Calcium 10.0 mg/dL (8.5-10.5) 10/28/21 03:35 Total Bilirubin 0.2 mg/dL (0.15-1.2) 10/28/21 03:35 AST 12 U/L (0-40) 10/28/21 03:35 ALT 9 U/L (0-41) 10/28/21 03:35 Alkaline Phosphatase 58 IU/L (40-130) 10/28/21 03:35 Troponin T Gen 5 ng/L 7 ng/L (0-15) 10/28/21 03:35 C-Reactive Protein 4.0 mg/L (0.0-4.9) 10/28/21 03:35 Total Protein 6.5 g/dL (6.6-8.7) L 10/28/21 03:35 Albumin 4.2 g/dL (3.5-5.2) 10/28/21 03:35 Globulin 2.3 g/dL (1.3-4.6) 10/28/21 03:35 Lipase 58 U/L (13-60) 10/28/21 03:35 Urine Color Yellow (Yellow) 10/28/21 04:15 Urine Appearance Clear (CLEAR) 10/28/21 04:15 Urine pH 5 (5-7) 10/28/21 04:15 Ur Specific [place] 1.025 (1.005-1.030) 10/28/21 04:15 Urine Protein Neg (Negative) 10/28/21 04:15 Urine Glucose (UA) Norm (Normal) 10/28/21 04:15 Urine Ketones 1+ (Negative) H 10/28/21 04:15 Urine Blood Neg (Negative) 10/28/21 04:15 Urine Nitrate Negative (Negative) 10/28/21 04:15 Urine Bilirubin Neg (Negative) 10/28/21 04:15 Urine Urobilinogen Norm mg/dL (Negative) 10/28/21 04:15 Ur Leukocyte Esterase Negative (Negative) 10/28/21 04:15 Discharge Plan Discharge Patient Disposition: Xfer Short-Term Hosp Clinical Impression: Gastric outlet obstruction Condition: Fair Referrals: Ulices Gerard DO [Primary Care Provider] - Sign Out Sign Out Data: Patient Sign Out occurred on 10/28/21 at 07:51. Patient's care was discussed, and care was transferred from to Seth Chris DO. Coding Level of Care Code ED Hims Clerk for Chg Fwd Exam Comprehensive Documented by User: Seth Chris DO 10/28/21 10:25 HPI - Abdominal Pain General: Chief Complaint: Abdominal Pain Stated Complaint: Left side ABD/back pain Time Seen by Provider: 10/28/21 02:57 [facility] ED PFSH: Medical History Anemia Back pain BPH (benign prostatic hyperplasia) Hypertension Migraine Tremor Family History Other Suicide Social History Alcohol intake: never History of recent travel: No Physical Exam Neuro: APRIL COMA SCALE: document GCS findings April coma scale total score: 15 Course Vital Signs: Vital signs: Vital Signs Temperature 98 F 10/28/21 02:56 Pulse Rate 59 L 10/28/21 07:30 Respiratory Rate 16 10/28/21 07:30 Blood Pressure 136/83 10/28/21 07:30 Pulse Oximetry 96 10/28/21 07:30 MDM - Abdominal Pain Medical Decision Making 61-year-old male with left upper quadrant and left flank pain. CBC is normal. BMP is normal. Liver enzymes are normal as well. CT shows a significantly distended stomach extending into the pelvis. This is indicative of gastric outlet obstruction. It is likely partial, as there is fluid and stool in the small and large bowel. His stomach, nevertheless, it is quite large. I spoke with our surgeon. Recommendations are NG decompression, followed by potentially EGD and stenting if necessary. We do not have gastroenterology or stenting availability at this facility. The patient had his previous gastric surgery at [facility] in [place] 2 years ago. I have a call out to them for potential jody pedro. Patient transferred to Dr. Hermosillo at [facility]. Transferred via ambulance. Lab Data : 10/28/21 03:35 10/28/21 03:35 Labs/Radiology: Radiology Impressions Abdomen/Pelvis CT 10/28/21 03:15
[2021-10-28] MEDS: lidocaine 2% viscous 15 ML, aluminum-mag hydrox-simethicon 30 ML, sucralfate oral liq 1 GM PO (03:24)
[2021-10-28] MEDS: morphine 4 mg/mL SDV 1 mL IVP (03:26)
[2021-10-28] MEDS: ondansetron 2 mg/ML SDV 2 mL 4 MG IVP (03:26)
[2021-10-28] MEDS: sodium chloride 0.9% 1,000 ML 999 ML IV (03:29)
[2021-10-28 03:42] LABS: Basophils # 0.1 10^3/uL (0.0-0.1); Basophils % 1.5 %; Eosinophils # 0.2 10^3/uL (0.0-0.8); Eosinophils % 2.8 %; Hematocrit 37.9 % (42.0-52.0); Hemoglobin 11.7 g/dL (11.7-16.6); Lymphocytes # 1.9 10^3/uL (0.8-4.8); Lymphocytes % 34.3 %; Mean Corpuscular HGB Conc 30.9 g/dL (30.0-36.0); Mean Corpuscular Hemoglobin 25.8 pg (28.0-34.0); Mean Corpuscular Volume 83.7 fl (80-94); Mean Platelet Volume 11.5 fL (7.4-10.4); Monocytes # 0.6 10^3/uL (0.2-0.9); Monocytes % 11.2 %; Neutrophils # 2.72 10^3/uL (1.8-7.7); Nucleated Red Blood Cells % 0 %; Platelet Count 246 10^3/cmm (130-400); Red Blood Count 4.53 10^6/uL (4.1-5.3); Red Cell Distribution Width 12.8 % (12.1-15.1); White Blood Count 5.4 10^3/uL (4.0-10.0)
[2021-10-28 04:03] LABS: Alanine Aminotransferase 9 U/L (0-41); Albumin Level 4.2 g/dL (3.5-5.2); Alkaline Phosphatase 58 IU/L (40-130); Anion Gap 16.6 (5-19); Aspartate Amino Transferase 12 U/L (0-40); Blood Urea Nitrogen 20 mg/dL (6-20); Carbon Dioxide 28 mmol/L (22-29); Chloride 102 mmol/L (98-107); Globulin 2.3 g/dL (1.3-4.6); Glomerular Filtration Rate 76.5 mL/min (90-130); Glucose 96 mg/dL (65-115); Lipase 58 U/L (13-60); Osmolality Calculated 298 mOsm/kg (285-295); Potassium 3.6 mmol/L (3.5-5.1); Sodium 143 mmol/L (136-145); Total Bilirubin 0.2 mg/dL (0.15-1.2); Total Protein 6.5 g/dL (6.6-8.7); Troponin T (5th) Once 7 ng/L (0-15)
[2021-10-28 04:34] LABS: Add Urine Microscopic? NO; Charge for UA Resulting for Rev
[2021-10-28 04:39] LABS: Bilirubin Urine Neg (Negative); Blood Urine Neg (Negative); Glucose Urine UA Norm (Normal); Ketones Urine 1+ (Negative); Leukocyte Esterase Urine Negative (Negative); Nitrate Urine Negative (Negative); Protein Urine Neg (Negative); Specific Gravity, Urine 1.025 (1.005-1.030); Urine Appearance Clear (CLEAR); Urine Color Yellow (Yellow); Urobilinogen Urine Norm (Negative); pH Urine 5 (5-7)
[2021-10-28] MEDS: cetacaine Spray 5 gm Can 1 SPRAY TOPICAL (06:56)
[2021-10-28 10:09] LABS: INR 1.14 (0.8-1.2); Partial Thromboplastin Time 30.9 SECONDS (23.9-36.7)
== END 2021-10-28 10:55 | disposition short-term general hospital (02) ==
PROVIDERS: Emergency Medicine; Emergency Provider Family Medicine; PCP Family Medicine
DX: K31.1 Adult hypertrophic pyloric stenosis (principal)
CPT/HCPCS: 74176; 80053; 81003; 83690; 84484; 85025; 85610; 85730; 86140; 93005; 96361; 96374; 96375; 99285; J2270; J2405; J7030

== ENCOUNTER 2021-12-24 00:25 | Emergency (ER) | payer MEDICAID, SELFPAY ==
[2021-12-24 00:25] VITALS: BP 112/56; PULSE 65; RESP 14; TEMP 36.9; O2SAT 99
--- NOTE | 2021-12-24 00:29 | CTR_ITS ---
PROCEDURE INFORMATION: Exam: CT Abdomen And Pelvis Without Contrast Exam date and time: 12/24/2021 12:53 AM Age: 61 years old Clinical indication: Abdominal pain and other: Back and hips; Additional info: Abd/back pain TECHNIQUE: Imaging protocol: Computed tomography of the abdomen and pelvis without contrast. Radiation optimization: All CT scans at this facility use at least one of these dose optimization techniques: automated exposure control; mA and/or kV adjustment per patient size (includes targeted exams where dose is matched to clinical indication); or iterative reconstruction. COMPARISON: CT kidney stone [id number] 10/28/2021 3:46 AM RADIATION DOSE METRICS: Total DLP (mGy-cm): 980.08 FINDINGS: Lungs: There is subsegmental atelectasis in the left lung. Liver: The liver is normal. Gallbladder and bile ducts: The gallbladder is absent. There is ectasia of the common bile duct and central intrahepatic ducts. Pancreas: The pancreas is unremarkable. Spleen: The spleen is unremarkable. Adrenal glands: The adrenal glands are unremarkable. Kidneys and ureters: The kidneys are unremarkable. No hydronephrosis or stones. No ureteral dilation. Stomach and bowel: The stomach is incompletely distended. The wall is mildly diffusely thickened. There is subtle perigastric edema distally. Unremarkable gastrojejunal anastomosis. There is intermittent fluid distention small bowel in the left mid to lower abdomen. No frankly dilated small bowel. Obstruction is not suspected. Unremarkable small bowel anastomosis in the central lower abdomen. No sign of inflammation the terminal ileum. The colon is unremarkable. Appendix: The appendix is not visible. Intraperitoneal space: There is no free air or significant intraperitoneal free fluid. Vasculature: The aorta is unremarkable. There is no aneurysm. There is mild aortic atherosclerotic disease. Lymph nodes: There is no lymphadenopathy in the retroperitoneum, mesentery, pelvis or inguinal regions. Urinary bladder: The urinary bladder is unremarkable. Reproductive: The prostate and seminal vesicles are unremarkable. Bones/joints: There is mild degenerative disease in the lumbar spine. The pelvis and hips are unremarkable. Soft tissues: The abdominal wall is intact. CT/CT abdomen pelvis wo con [id number] IMPRESSION: 1. Mild gastric wall thickening. Nonspecific. Possible gastritis. Markedly decreased gastric distention since 10/28/2021. No sign of gastric outlet obstruction. 2. Incidental findings above.
--- NOTE | 2021-12-24 00:30 | ECG_ITS ---
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 Measurements Intervals [place] Rate: 56 P: 71 NC: 136 QRS: 84 QRSD: 102 T: 72 QT: 438 QTc: 425 Interpretive Statements SINUS BRADYCARDIA SEPTAL MYOCARDIAL INFARCTION , OF INDETERMINATE AGE [40+ ms Q WAVE IN V1/V2] Compared to ECG 10/28/2021 03:16:00 Myocardial infarct finding now present ST (T wave) deviation no longer present Electronically Signed On 12-24-2021 16:45:12 CDT by Javier Rodriguez M.D. [id number]
--- NOTE | 2021-12-24 00:31 | ED_ITS ---
HPI - Back Pain/Injury General: Chief Complaint: Back Pain/Injury Stated Complaint: BACK PAIN Time Seen by Provider: 12/24/21 00:26 Source: EMS Mode of arrival: EMS Limitations: no limitations History of Present Illness: 61-year-old male who states that roughly 4 to 5 hours ago he started having some back pain that was radiating to the both hips. States he had some dizziness as well. He states the pain is sharp and bilateral nature he rates it a 7 out of 10 currently has been able to ambulate without any difficulty. He denies any chest pain denies any vomiting or diarrhea. He denies any worsening proving factors denies any injuries. Associated symptoms: Deny abdominal pain, chills, dysuria, fever(s), nausea or vomiting Review of Systems Const: Denies: fever(s), chills, body aches or change in appetite Eyes: Denies: blurry vision or eye discomfort ENMT: Denies: throat pain or dental pain Card: Denies: chest pain Resp: Denies: dyspnea GI: Denies: abdominal pain, nausea, vomiting or diarrhea : Denies: dysuria Musc: Reports: back pain Skin/Breast: Denies: rash Neuro: Reports: dizziness Psych: Denies: depression Keyur/Lymph: Denies: easy bruising All/Imm: Denies: urticaria PFSH ED PFSH: Medical History Anemia Back pain BPH (benign prostatic hyperplasia) Hypertension Migraine Psychiatric care Tremor Family History Other Suicide Social History Smoking and tobacco status: never smoked Alcohol intake: never History of recent travel: No Physical Exam Const: COMMON NORMALS: no acute distress, patient oriented x3 and healthy appearing HENMT: COMMON NORMALS: normocephalic and atraumatic HEAD & SCALP: normocephalic and atraumatic Eye: COMMON NORMALS: Equal, round and reactive pupils present and EOMs intact bilaterally PUPIL: Yes Equal, round and reactive pupils present Neck/C-Spine: COMMON NORMALS: full ROM and supple Chest: COMMONS NORMALS: normal inspection of the chest and normal palpation of entire chest wall Resp: COMMON NORMALS: normal respiratory effort, No retractions, No use of accessory muscles and clear to auscultation bilaterally AUSCULTATION: clear to auscultation bilaterally Cardio: COMMON NORMALS: regular rate, regular rhythm and No murmurs present (Cardio) RATE: regular rate RHYTHM: regular rhythm GI: COMMON NORMALS: Normal to inspection, nondistended, normoactive bowel sounds present, Soft to palpation, non-tender and no masses PALPATION: Yes Soft to palpation Extremity: COMMON NORMALS: normal to inspection and full ROM Neuro: COMMON NORMALS: patient oriented x3, moves all extremities and no focal motor deficits Psych: COMMON NORMALS: mental status grossly normal, Normal thought process present and cooperative THOUGHT PROCESS: Normal thought process present Skin: COMMON NORMALS: no rashes or lesions noted and no wounds GENERAL SKIN EXAM: no rashes or lesions noted Course Vital Signs: Vital signs: Vital Signs Temperature 98.5 F 12/24/21 00:25 Pulse Rate 58 L 12/24/21 02:32 Respiratory Rate 14 12/24/21 00:44 Blood Pressure 108/68 12/24/21 02:32 Pulse Oximetry 99 12/24/21 00:25 MDM - Back Pain/Injury Medical Decision Making Patient presents here with back pain his CT scan and blood work here are normal. He does have some mild anemia is not under 7 his vital signs here been normal he has normal orthostatics. I did do a rectal exam showed no blood in his stools. He is stable for discharge he needs to have his hemoglobin rechecked in 3 to 5 days by his PCP and he is return if worsening he understands agrees to plan. Labs : 12/24/21 00:36 12/24/21 00:36 Radiology Impressions Abdomen/Pelvis CT 12/24/21 00:29 IMPRESSION: 1. Mild gastric wall thickening. Nonspecific. Possible gastritis. Markedly decreased gastric distention since 10/28/2021. No sign of gastric outlet obstruction. 2. Incidental findings above. Laboratory Results WBC 6.4 10^3/uL (4.0-10.0) 12/24/21 00:36 RBC 3.42 10^6/uL (4.1-5.3) L 12/24/21 00:36 Hgb 7.3 g/dL (11.7-16.6) L 12/24/21 00:36 Hct 26.0 % (42.0-52.0) L 12/24/21 00:36 MCV 76.0 fl (80-94) L 12/24/21 00:36 MCH 21.3 pg (28.0-34.0) L 12/24/21 00:36 MCHC 28.1 g/dL (30.0-36.0) L 12/24/21 00:36 RDW 14.3 % (12.1-15.1) 12/24/21 00:36 Plt Count 300 10^3/cmm (130-400) 12/24/21 00:36 MPV 11.3 fL (7.4-10.4) H 12/24/21 00:36 Neut % (Auto) 61.4 % 12/24/21 00:36 Lymph % (Auto) 27.5 % 12/24/21 00:36 Craven % (Auto) 7.5 % 12/24/21 00:36 Eos % (Auto) 2.3 % 12/24/21 00:36 Baso % (Auto) 1.1 % 12/24/21 00:36 Neut # (Auto) 3.96 10^3/uL (1.8-7.7) 12/24/21 00:36 Lymph # (Auto) 1.8 10^3/uL (0.8-4.8) 12/24/21 00:36 Craven # (Auto) 0.5 10^3/uL (0.2-0.9) 12/24/21 00:36 Eos # (Auto) 0.2 10^3/uL (0.0-0.8) 12/24/21 00:36 Baso # (Auto) 0.1 10^3/uL (0.0-0.1) 12/24/21 00:36 Nucleated RBC % (auto) 0 % 12/24/21 00:36 Nucleated RBCs # 0.0 /100WBC 12/24/21 00:36 Sodium 140 mmol/L (136-145) 12/24/21 00:36 Potassium 4.0 mmol/L (3.5-5.1) 12/24/21 00:36 Chloride 105 mmol/L (98-107) 12/24/21 00:36 Carbon Dioxide 25 mmol/L (22-29) 12/24/21 00:36 Anion Gap 14.0 (5-19) 12/24/21 00:36 BUN 18 mg/dL (6-20) 12/24/21 00:36 Creatinine 0.9 mg/dL (0.7-1.2) 07 00:36 GFR Calculation 86.4 mL/min (90-130) L 12/24/21 00:36 Glucose 100 mg/dL (65-115) 12/24/21 00:36 Calculated Osmolality 292 mOsm/kg (285-295) 07 00:36 Calcium 8.6 mg/dL (8.5-10.5) 12/24/21 00:36 Total Bilirubin 0.2 mg/dL (0.15-1.2) 12/24/21 00:36 AST 12 U/L (0-40) 12/24/21 00:36 ALT < 5 U/L (0-41) 12/24/21 00:36 Alkaline Phosphatase 46 IU/L (40-130) 12/24/21 00:36 Total Protein 6.8 g/dL (6.6-8.7) 12/24/21 00:36 Albumin 4.2 g/dL (3.5-5.2) 12/24/21 00:36 Globulin 2.6 g/dL (1.3-4.6) 12/24/21 00:36 Lipase 44 U/L (13-60) 12/24/21 00:36 EKG Data EKG 1: I personally reviewed and interpreted this EKG as follows: EKG interpretation date: 12/24/21 EKG interpretation time: 01:02 Interpretation: sinus rosie hr [address] or t wave abnormalities qrs 102 qtc 430 Discharge Plan Discharge Patient Disposition: Home Clinical Impression: Back pain, Gastritis Condition: Stable Prescriptions: No Action Excedrin Extra Strength 250-250-65 mg tablet 1 tab PO Q6H PRN0RF Complete Nutritional Drink 0.04-1.05 gram-kcal/mL liquid PO DAILY 0RF topiramate 50 mg tablet 50 mg PO BID Qty: 60 11RF ferrous sulfate 325 mg (65 mg iron) tablet 325 mg PO DAILY Qty: 30 11RF cyclobenzaprine 10 mg tablet 10 mg PO BID PRN (Reason: Muscle Spasm) Qty: 60 3RF Botox 100 unit recon soln 200 unit IM .month 0RF docusate sodium 100 mg capsule 100 mg PO BID PRN (Reason: Constipation) 0RF acetaminophen [Tylenol Extra Strength] 500 mg tablet 500 mg PO Q4H PRN (Reason: Pain, Mild) 0RF amitriptyline 75 mg tablet 75 mg PO DAILY Qty: 30 11RF chlorpromazine 10 mg tablet 10 mg PO TID Qty: 90 3RF tramadol 50 mg tablet 50 mg PO DAILY PRN (Reason: pain) Qty: 30 0RF promethazine-DM 6.25-15 mg/5 mL syrup 5 ml PO Q6H PRN (Reason: cough) Qty: 118 1RF hydrocodone-acetaminophen 5-325 mg tablet 1 tab PO BID PRN (Reason: pain) 0RF pantoprazole [Protonix] 40 mg tablet,delayed release (DR/EC) 40 mg PO DAILY 0RF propranolol 20 mg tablet 10 mg PO BID Qty: 60 11RF Hold Instructions: Doctor's Order tamsulosin 0.4 mg capsule See Rx Instructions .ROUTE .COMPLEX Qty: 60 11RF Dose Instruction: TAKE 2 CAPSULES BY MOUTH ONCE DAILY Rx Instructions: TAKE 2 CAPSULES BY MOUTH ONCE DAILY finasteride 5 mg tablet See Rx Instructions .ROUTE .COMPLEX Qty: 30 11RF Dose Instruction: TAKE ONE TABLET BY MOUTH ONCE DAILY Rx Instructions: TAKE ONE TABLET BY MOUTH ONCE DAILY Discharge Orders: Discharge ED (Routine); Ordered 12/24/21 Ordered By: Radha Man Referrals: Ulices Gerard DO [Primary Care Provider] - 1-3 days Discharge Diet: Advance as tolerated Discharge Activity: Resume usual activity Patient Instructions: Gastritis (ED), Back Pain (ED) Coding Level of Care Code ED Chief Innovation Officer for Chg Fwd Exam Comprehensive
[2021-12-24 00:39] LABS: Basophils # 0.1 10^3/uL (0.0-0.1); Basophils % 1.1 %; Eosinophils # 0.2 10^3/uL (0.0-0.8); Eosinophils % 2.3 %; Hemoglobin 7.3 g/dL (11.7-16.6); Lymphocytes # 1.8 10^3/uL (0.8-4.8); Lymphocytes % 27.5 %; Mean Corpuscular HGB Conc 28.1 g/dL (30.0-36.0); Mean Corpuscular Hemoglobin 21.3 pg (28.0-34.0); Mean Platelet Volume 11.3 fL (7.4-10.4); Monocytes # 0.5 10^3/uL (0.2-0.9); Monocytes % 7.5 %; Neutrophils # 3.96 10^3/uL (1.8-7.7); Neutrophils % 61.4 %; Nucleated Red Blood Cells % 0 %; Platelet Count 300 10^3/cmm (130-400); Red Blood Count 3.42 10^6/uL (4.1-5.3); Red Cell Distribution Width 14.3 % (12.1-15.1); White Blood Count 6.4 10^3/uL (4.0-10.0)
[2021-12-24] MEDS: sodium chloride 0.9% 1,000 ML 999 ML IV (00:43)
[2021-12-24 00:44] VITALS: RESP 14
[2021-12-24] MEDS: morphine 4 mg/mL SDV 1 mL IVP (00:44)
[2021-12-24] MEDS: ondansetron 2 mg/ML SDV 2 mL 4 MG IVP (00:44)
[2021-12-24 00:58] LABS: Alanine Aminotransferase < 5 U/L (0-41); Albumin Level 4.2 g/dL (3.5-5.2); Alkaline Phosphatase 46 IU/L (40-130); Aspartate Amino Transferase 12 U/L (0-40); Blood Urea Nitrogen 18 mg/dL (6-20); Calcium 8.6 mg/dL (8.5-10.5); Carbon Dioxide 25 mmol/L (22-29); Chloride 105 mmol/L (98-107); Globulin 2.6 g/dL (1.3-4.6); Glomerular Filtration Rate 86.4 mL/min (90-130); Glucose 100 mg/dL (65-115); Lipase 44 U/L (13-60); Osmolality Calculated 292 mOsm/kg (285-295); Sodium 140 mmol/L (136-145); Total Bilirubin 0.2 mg/dL (0.15-1.2); Total Protein 6.8 g/dL (6.6-8.7)
--- NOTE | 2021-12-24 02:25 | PC.NURSE ---
layin/68; hr 58 sittin/59; hr 61 standin/74; hr 62
[2021-12-24 02:32] VITALS: BP 106/59; BP 108/68; BP 117/74; PULSE 58; PULSE 61; PULSE 62
[2021-12-24 03:25] VITALS: BP 107/74; PULSE 58; RESP 14; O2SAT 95
== END 2021-12-24 03:25 | disposition home or self-care (01) ==
PROVIDERS: Emergency Provider Emergency Medicine; PCP Family Medicine
DX: M54.9 Dorsalgia, unspecified (principal); K29.70 Gastritis, unspecified, without bleeding; I10 Essential (primary) hypertension
CPT/HCPCS: 74176; 80053; 83690; 85025; 93005; 96374; 96375; 99284; J2270; J2405; J7030

== ENCOUNTER 2021-12-24 07:09 | Emergency (ER) | payer MEDICAID, SELFPAY ==
--- NOTE | 2021-12-24 07:13 | XR_ITS ---
WS: [id number] PORTABLE CHEST HISTORY: chest pain COMPARISON: 10/22/2021 Lungs are clear and well expanded. No pleural effusion or pneumothorax. Cardiac size: Normal. Mediastinum/Aorta: Normal mediastinum. No osseous abnormality seen. XR/XR chest 1V portable [id number] IMPRESSION: Unremarkable portable chest.
--- NOTE | 2021-12-24 07:14 | ECG_ITS ---
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 Measurements Intervals [place] Rate: 60 P: 73 ND: 145 QRS: 88 QRSD: 102 T: 71 QT: 412 QTc: 413 Interpretive Statements SINUS RHYTHM SEPTAL MYOCARDIAL INFARCTION , OF INDETERMINATE AGE [40+ ms Q WAVE IN V1/V2] INTERPRETATION BASED ON A DEFAULT AGE OF 40 YEARS Compared to ECG 12/24/2021 01:02:04 Sinus bradycardia no longer present Myocardial infarct finding still present Electronically Signed On 12-24-2021 16:52:13 CDT by Javier Rodriguez M.D. [id number]
[2021-12-24 07:28] VITALS: BP 176/77; PULSE 59; RESP 18; TEMP 36.7; O2SAT 97
--- NOTE | 2021-12-24 07:54 | ED_ITS ---
HPI - Chest Pain General: Chief Complaint: Chest Pain Stated Complaint: Chest Pain, left arm pain Time Seen by Provider: 12/24/21 07:12 Source: patient Mode of arrival: ambulatory Limitations: no limitations History of Present Illness: 61-year-old male presents to the emergency room with complaint of chest pain he was just seen few hours ago for back pain had a work-up that was negative he was discharged. Evidently has been in the waiting room since now he is complaining of a different complaint chest pain pain radiating to his left arm he has no known history of coronary artery disease. He has not previously had any angiograms or stents. He did have a stress test in 2016 which was interpreted as negative and he is not had any further problems since. He has not recently been having episodes of chest pain this is a new symptom for him. MD complaint: chest pain Onset (ago): minute(s) Timing of current episode: episodic Prior episodes: No Onset: during rest Pain location: left chest Pain radiation: left arm Severity: mild Quality: aching and heaviness Relieving factors: nothing Exacerbating factors: nothing Associated symptoms: Deny abdominal pain, diaphoresis, dyspnea, fever(s), leg edema, nausea, palpitations, sense of impending doom, syncope or vomiting Treatment prior to arrival: none Review of Systems Const: Denies: fever(s), chills, fatigue, malaise or diaphoresis ENMT: Denies: throat pain, ear or mastoid pain, nasal discharge or nasal congestion Card: Denies: palpitations or syncope Resp: Denies: dyspnea GI: Denies: abdominal pain, nausea or vomiting : Denies: flank pain, dysuria, urinary frequency or urinary urgency Skin/Breast: Denies: rash or pruritus PFSH ED PFSH: Medical History Anemia Back pain BPH (benign prostatic hyperplasia) Hypertension Migraine Psychiatric care Tremor Family History Other Suicide Social History Smoking and tobacco status: never smoked Alcohol intake: never History of recent travel: No Physical Exam Const: GENERAL APPEARANCE: cooperative and comfortable ORIENTATION/CONSCIOUSNESS: Yes awake, Yes oriented to person, Yes oriented to place and Yes oriented to time HENMT: COMMON NORMALS: normocephalic, atraumatic and hearing grossly normal bilaterally HEAD & SCALP: normocephalic and atraumatic Neck/C-Spine: COMMON NORMALS: no JVD Resp: COMMON NORMALS: normal respiratory effort, No retractions, No use of accessory muscles and clear to auscultation bilaterally AUSCULTATION: clear to auscultation bilaterally Cardio: COMMON NORMALS: no JVD, regular rate, regular rhythm and No murmurs present (Cardio) RATE: regular rate RHYTHM: regular rhythm GI: COMMON NORMALS: Soft to palpation and No hepatosplenomegaly present AUSCULTATION: Yes normoactive bowel sounds PALPATION: Yes Soft to palpation, No Tenderness to palpation present (GI), No Guarding due to palpation present (GI) and Yes No hepatosplenomegaly present Extremity: COMMON NORMALS: normal to inspection, capillary refill normal, no clubbing, cyanosis or edema, no calf tenderness and no pedal edema Neuro: SENSORIUM/ORIENTATION: Yes oriented to person, Yes oriented to place and Yes oriented to time Skin: COMMON NORMALS: no rashes or lesions noted GENERAL SKIN EXAM: no rashes or lesions noted Course Vital Signs: Vital signs: Vital Signs Temperature 98.1 F 12/24/21 07:28 Pulse Rate 55 L 12/24/21 10:45 Respiratory Rate 16 12/24/21 10:45 Blood Pressure 151/85 12/24/21 10:45 Pulse Oximetry 99 12/24/21 10:45 MDM - Chest Pain Medical Decision Making No chest pain at this time his troponins and EKG is unremarkable. Discharge him on aspirin formerly [facility] for Lexiscan sestamibi stress test as an outpatient return if he has further problems. Medical Records I reviewed the patient's medical records. Lab Data I reviewed the patient's lab results. Radiology Impressions Chest X-Ray 12/24/21 07:13 IMPRESSION: Unremarkable portable chest. Laboratory Results Troponin T Baseline 7 ng/L (0-15) 12/24/21 07:50 Troponin T 120 Minute 6.00 ng/L (0-15) 12/24/21 10:04 Delta Troponin T -1 ABS# (0-10) L 12/24/21 10:04 Discharge Plan Discharge Patient Disposition: Home Clinical Impression: Atypical chest pain Condition: Stable Prescriptions: New aspirin 81 mg tablet,delayed release (DR/EC) 81 mg PO DAILY Qty: 30 0RF No Action Excedrin Extra Strength 250-250-65 mg tablet 1 tab PO Q6H PRN0RF Complete Nutritional Drink 0.04-1.05 gram-kcal/mL liquid PO DAILY 0RF topiramate 50 mg tablet 50 mg PO BID Qty: 60 11RF ferrous sulfate 325 mg (65 mg iron) tablet 325 mg PO DAILY Qty: 30 11RF cyclobenzaprine 10 mg tablet 10 mg PO BID PRN (Reason: Muscle Spasm) Qty: 60 3RF Botox 100 unit recon soln 200 unit IM .month 0RF docusate sodium 100 mg capsule 100 mg PO BID PRN (Reason: Constipation) 0RF acetaminophen [Tylenol Extra Strength] 500 mg tablet 500 mg PO Q4H PRN (Reason: Pain, Mild) 0RF amitriptyline 75 mg tablet 75 mg PO DAILY Qty: 30 11RF chlorpromazine 10 mg tablet 10 mg PO TID Qty: 90 3RF tramadol 50 mg tablet 50 mg PO DAILY PRN (Reason: pain) Qty: 30 0RF promethazine-DM 6.25-15 mg/5 mL syrup 5 ml PO Q6H PRN (Reason: cough) Qty: 118 1RF hydrocodone-acetaminophen 5-325 mg tablet 1 tab PO BID PRN (Reason: pain) 0RF pantoprazole [Protonix] 40 mg tablet,delayed release (DR/EC) 40 mg PO DAILY 0RF propranolol 20 mg tablet 10 mg PO BID Qty: 60 11RF Hold Instructions: Doctor's Order tamsulosin 0.4 mg capsule See Rx Instructions .ROUTE .COMPLEX Qty: 60 11RF Dose Instruction: TAKE 2 CAPSULES BY MOUTH ONCE DAILY Rx Instructions: TAKE 2 CAPSULES BY MOUTH ONCE DAILY finasteride 5 mg tablet See Rx Instructions .ROUTE .COMPLEX Qty: 30 11RF Dose Instruction: TAKE ONE TABLET BY MOUTH ONCE DAILY Rx Instructions: TAKE ONE TABLET BY MOUTH ONCE DAILY Discharge Orders: Discharge ED (Routine); Ordered 12/24/21 Ordered By: Seth Chris Referrals: Ulices Gerard, [Primary Care Provider] - Discharge Diet: Usual diet Discharge Activity: Limit activity as instructed Patient Instructions: Opioid Safety Activity Restrictions/Additional Instructions: Avoid exertional activity. Case management make arrangements for Lexiscan sestamibi stress test and follow-up with cardiology. Coding Level of Care Code ED Mud Jack Nozzle Worker for Christopheg Fwd Exam Comprehensive
[2021-12-24] MEDS: aspirin 81 mg Chew Tablet 324 MG PO (08:01)
[2021-12-24 08:08] VITALS: BP 151/85; PULSE 58; RESP 13; O2SAT 100
[2021-12-24 08:23] LABS: Troponin(5th) Baseline 7 ng/L (0-15)
--- NOTE | 2021-12-24 09:14 | ECG_ITS ---
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 Measurements Intervals [place] Rate: 52 P: 71 DE: 138 QRS: 85 QRSD: 95 T: 72 QT: 419 QTc: 392 Interpretive Statements SINUS BRADYCARDIA SEPTAL MYOCARDIAL INFARCTION , OF INDETERMINATE AGE [40+ ms Q WAVE IN V1/V2] Compared to ECG 12/24/2021 01:02:04 No significant changes Electronically Signed On 12-24-2021 16:58:37 CDT by Javier Rodriguez M.D. [id number]
[2021-12-24 10:45] VITALS: BP 151/85; PULSE 55; RESP 16; O2SAT 99
[2021-12-24 10:47] LABS: Troponin 5 2HR Delta -1 ABS# (0-10)
--- NOTE | 2021-12-25 10:18 | DCPLANNER ---
Addendum entered by Lindsey Coy 03/14/22 11:14: Patients appointment at [facility] was rescheduled. Addendum entered by Lindsey Coy 01/12/22 15:59: Patient has a follow up appointment scheduled for Friday, February 18, 2022 at 1:[address] Keane at [facility]. Clinic will notify patient about appointment. Original Note: advertising production manager had message to schedule an outpatient stress test for patient, and a follow up appointment with cardiology. advertising production manager faxed a signed order to centralized scheduling, who will call patient with appointment information. advertising production manager also sent patients information to the front office staff at [facility]. Patients information will be printed and reviewed. Clinic will call patient with appointment information.
== END 2021-12-24 11:03 | disposition home or self-care (01) ==
PROVIDERS: Physician Assistant; Emergency Provider Family Medicine; PCP Family Medicine
DX: R07.89 Other chest pain (principal); I10 Essential (primary) hypertension
CPT/HCPCS: 71045; 84484; 93005; 99285

== ENCOUNTER 2022-05-21 17:29 | Emergency (ER) | payer MEDICAID, SELFPAY ==
[2022-05-21 17:35] VITALS: BP 135/82; PULSE 68; RESP 14; TEMP 36.7; O2SAT 99; BMI 19.8
[2022-05-21 20:22] LABS: Basophils # 0.1 10^3/uL (0.0-0.1); Basophils % 0.8 %; Eosinophils # 0.1 10^3/uL (0.0-0.8); Eosinophils % 1.7 %; Hematocrit 44.4 % (42.0-52.0); Hemoglobin 13.1 g/dL (11.7-16.6); Lymphocytes # 1.4 10^3/uL (0.8-4.8); Lymphocytes % 21.2 %; Mean Corpuscular HGB Conc 29.5 g/dL (30.0-36.0); Mean Corpuscular Hemoglobin 25.1 pg (28.0-34.0); Mean Corpuscular Volume 85.1 fl (80-94); Mean Platelet Volume 10.9 fL (7.4-10.4); Monocytes # 0.4 10^3/uL (0.2-0.9); Monocytes % 5.8 %; Neutrophils % 70.2 %; Nucleated Red Blood Cells % 0 %; Platelet Count 220 10^3/cmm (130-400); Red Blood Count 5.22 10^6/uL (4.1-5.3); Red Cell Distribution Width 14.9 % (12.1-15.1); White Blood Count 6.4 10^3/uL (4.0-10.0)
[2022-05-21 20:47] LABS: Alanine Aminotransferase 17 U/L (0-41); Albumin Level 4.6 g/dL (3.5-5.2); Alkaline Phosphatase 68 U/L (40-130); Anion Gap 15.3 (5-19); Aspartate Amino Transferase 18 U/L (0-40); Blood Urea Nitrogen 11 mg/dL (8-23); Calcium 9.8 mg/dL (8.5-10.5); Carbon Dioxide 31 mmol/L (22-29); Chloride 99 mmol/L (98-107); Glomerular Filtration Rate 98.6 mL/min (90-130); Glucose 93 mg/dL (65-115); Lipase 31 U/L (13-60); Osmolality Calculated 291 mOsm/kg (285-295); Potassium 4.3 mmol/L (3.5-5.1); Sodium 141 mmol/L (136-145); Total Bilirubin 0.3 mg/dL (0.15-1.2); Total Protein 7.6 g/dL (6.6-8.7)
[2022-05-21 21:00] LABS: Add Urine Microscopic? NO; Charge for UA Resulting for Rev
--- NOTE | 2022-05-21 21:00 | ED_ITS ---
HPI - Abdominal Pain General: Chief Complaint: Abdominal Pain Stated Complaint: abd pain for six months Time Seen by Provider: 05/21/22 20:07 Source: patient Mode of arrival: ambulatory Limitations: no limitations History of Present Illness: 62-year-old male states been having diffuse abdominal pain for months he has been seen multiple times at different facilities for this he states that he started having pain again today that is a pressure pain in the lower abdomen he denies any vomiting denies any diarrhea he denies any fevers denies any worsening proving factors. Associated Symptoms: Denies chills, dysuria and fever(s) Review of Systems Const: Denies: fever(s), chills, body aches or change in appetite Eyes: Denies: blurry vision or eye discomfort ENMT: Denies: throat pain or dental pain Card: Denies: chest pain Resp: Denies: dyspnea GI: Reports: abdominal pain : Denies: dysuria Musc: Denies: neck pain or back pain Skin/Breast: Denies: rash Neuro: Denies: headache(s) Psych: Denies: depression Keyur/Lymph: Denies: easy bruising All/Imm: Denies: urticaria PFSH ED PFSH: Medical History Anemia Back pain BPH (benign prostatic hyperplasia) Hypertension Migraine Psychiatric care Tremor Family History Other Suicide Social History Smoking and tobacco status: never smoked Alcohol intake: never History of recent travel: No Physical Exam Const: COMMON NORMALS: no acute distress, patient oriented x3 and healthy appearing HENMT: COMMON NORMALS: normocephalic and atraumatic HEAD & SCALP: normocephalic and atraumatic Eye: COMMON NORMALS: Equal, round and reactive pupils present and EOMs intact bilaterally PUPIL: Yes Equal, round and reactive pupils present Neck/C-Spine: COMMON NORMALS: full ROM and supple Chest: COMMONS NORMALS: normal inspection of the chest and normal palpation of entire chest wall Resp: COMMON NORMALS: normal respiratory effort, No retractions, No use of accessory muscles and clear to auscultation bilaterally AUSCULTATION: clear to auscultation bilaterally Cardio: COMMON NORMALS: regular rate, regular rhythm and No murmurs present (Cardio) RATE: regular rate RHYTHM: regular rhythm GI: COMMON NORMALS: Normal to inspection, nondistended, normoactive bowel sounds present, Soft to palpation, non-tender and no masses PALPATION: Yes Soft to palpation Extremity: COMMON NORMALS: normal to inspection and full ROM Neuro: COMMON NORMALS: patient oriented x3, moves all extremities and no focal motor deficits Psych: COMMON NORMALS: mental status grossly normal, Normal thought process present and cooperative THOUGHT PROCESS: Normal thought process present Skin: COMMON NORMALS: no rashes or lesions noted and no wounds GENERAL SKIN EXAM: no rashes or lesions noted Course Vital Signs: Vital signs: Vital Signs Temperature 98.1 F 05/21/22 17:35 Pulse Rate 68 05/21/22 17:35 Respiratory Rate 14 05/21/22 17:35 Blood Pressure 135/82 05/21/22 17:35 Pulse Oximetry 99 05/21/22 17:35 Oxygen Delivery Me thod 05/21/22 17:35 MDM - Abdominal Pain Medical Decision Making Patient presents with abdominal pain has been chronic in nature he is well-a ppearing here blood work urinalysis is normal exam is normal he stable for discharge he is to follow-up with surgeon Dr. Padilla return if worsening he understands agrees to plan. Lab Data 05/21/22 19:55 05/21/22 19:55 Labs/Radiology: Laboratory Results WBC 6.4 10^3/uL (4.0-10.0) 05/21/22 19:55 RBC 5.22 10^6/uL (4.1-5.3) 05/21/22 19:55 Hgb 13.1 g/dL (11.7-16.6) 05/21/22 19:55 Hct 44.4 % (42.0-52.0) 05/21/22 19:55 MCV 85.1 fl (80-94) 05/21/22 19:55 MCH 25.1 pg (28.0-34.0) L 05/21/22 19:55 MCHC 29.5 g/dL (30.0-36.0) L 05/21/22 19:55 RDW 14.9 % (12.1-15.1) 05/21/22 19:55 Plt Count 220 10^3/cmm (130-400) 05/21/22 19:55 MPV 10.9 fL (7.4-10.4) H 05/21/22 19:55 Neut % (Auto) 70.2 % 05/21/22 19:55 Lymph % (Auto) 21.2 % 05/21/22 19:55 [place] % (Auto) 5.8 % 05/21/22 19:55 Eos % (Auto) 1.7 % 05/21/22 19:55 Baso % (Auto) 0.8 % 05/21/22 19:55 Neut # (Auto) 4.50 10^3/uL (1.8-7.7) 05/21/22 19:55 Lymph # (Auto) 1.4 10^3/uL (0.8-4.8) 05/21/22 19:55 [place] # (Auto) 0.4 10^3/uL (0.2-0.9) 05/21/22 19:55 Eos # (Auto) 0.1 10^3/uL (0.0-0.8) 05/21/22 19:55 Baso # (Auto) 0.1 10^3/uL (0.0-0.1) 05/21/22 19:55 Nucleated RBC % (auto) 0 % 05/21/22 19:55 Nucleated RBCs # 0.0 /100WBC 05/21/22 19:55 Sodium 141 mmol/L (136-145) 05/21/22 19:55 Potassium 4.3 mmol/L (3.5-5.1) 05/21/22 19:55 Chloride 99 mmol/L (98-107) 05/21/22 19:55 Carbon Dioxide 31 mmol/L (22-29) H 05/21/22 19:55 Anion Gap 15.3 (5-19) 05/21/22 19:55 BUN 11 mg/dL (8-23) 05/21/22 19:55 Creatinine 0.8 mg/dL (0.7-1.2) 05/21/22 19:55 GFR Calculation 98.6 mL/min (90-130) 05/21/22 19:55 Glucose 93 mg/dL (65-115) 05/21/22 19:55 Calculated Osmolality 291 mOsm/kg (285-295) 05/21/22 19:55 Calcium 9.8 mg/dL (8.5-10.5) 05/21/22 19:55 Total Bilirubin 0.3 mg/dL (0.15-1.2) 05/21/22 19:55 AST 18 U/L (0-40) 05/21/22 19:55 ALT 17 U/L (0-41) 05/21/22 19:55 Alkaline Phosphatase 68 U/L (40-130) 05/21/22 19:55 Total Protein 7.6 g/dL (6.6-8.7) 05/21/22 19:55 Albumin 4.6 g/dL (3.5-5.2) 05/21/22 19:55 Globulin 3.0 g/dL (1.3-4.6) 05/21/22 19:55 Lipase 31 U/L (13-60) 05/21/22 19:55 Urine Color Yellow (Yellow) 05/21/22 20:54 Urine Appearance Clear (CLEAR) 05/21/22 20:54 Urine pH 8 (5-7) H 05/21/22 20:54 Ur Specific [employer] 1.015 (1.005-1.030) 05/21/22 20:54 Urine Protein Neg (Negative) 05/21/22 20:54 Urine Glucose (UA) Norm (Normal) 05/21/22 20:54 Urine Ketones Negative (Negative) 05/21/22 20:54 Urine Blood Neg (Negative) 05/21/22 20:54 Urine Nitrate Negative (Negative) 05/21/22 20:54 Urine Bilirubin Neg (Negative) 05/21/22 20:54 Urine Urobilinogen Norm mg/dL (Negative) 05/21/22 20:54 Ur Leukocyte Esterase Negative (Negative) 05/21/22 20:54 Discharge Plan Discharge Patient Disposition: Home Clinical Impression: Abdominal pain Condition: Stable Prescriptions: New Protonix 40 mg tablet,delayed release (DR/EC) 40 mg PO DAILY Qty: 60 0RF No Action Excedrin Extra Strength 250-250-65 mg tablet 1 tab PO Q6H PRN Complete Nutritional Drink 0.04-1.05 gram-kcal/mL liquid PO DAILY Botox 100 unit recon soln 200 unit IM .month docusate sodium 100 mg capsule 100 mg PO BID PRN (Reason: Constipation) acetaminophen [Tylenol Extra Strength] 500 mg tablet 500 mg PO Q4H PRN (Reason: Pain, Mild) chlorpromazine 10 mg tablet 10 mg PO TID Qty: 90 3RF cyclobenzaprine 10 mg tablet 10 mg PO BID PRN (Reason: Muscle Spasm) Qty: 60 3RF ferrous sulfate 325 mg (65 mg iron) tablet 325 mg PO DAILY Qty: 60 3RF sucralfate 1 gram tablet 1 g PO .before meals and at Qty: 120 11RF ondansetron HCl 8 mg tablet 8 mg PO Q8H PRN (Reason: nausea) Qty: 30 0RF tamsulosin 0.4 mg capsule See Rx Instructions .ROUTE .COMPLEX Qty: 60 11RF Dose Instruction: TAKE 2 CAPSULES BY MOUTH ONCE DAILY Rx Instructions: TAKE 2 CAPSULES BY MOUTH ONCE DAILY finasteride 5 mg tablet See Rx Instructions .ROUTE .COMPLEX Qty: 30 11RF Dose Instruction: TAKE ONE TABLET BY MOUTH ONCE DAILY Rx Instructions: TAKE ONE TABLET BY MOUTH ONCE DAILY amitriptyline 75 mg tablet 75 mg PO DAILY Qty: 30 11RF tramadol 50 mg tablet 50 mg PO DAILY PRN (Reason: pain) Qty: 30 0RF topiramate 50 mg tablet 50 mg PO BID Qty: 60 11RF propranolol 20 mg tablet 10 mg PO BID Qty: 60 11RF Hold Instructions: Doctor's Order polyethylene glycol 3350 [Miralax] 17 gram/dose powder 4 g PO DAILY pantoprazole [Protonix] 40 mg tablet,delayed release (DR/EC) 40 mg PO DAILY Qty: 90 1RF aspirin 81 mg tablet,delayed release (DR/EC) 81 mg PO DAILY Qty: 30 0RF Discharge Orders: Discharge ED (Routine); Ordered 05/21/22 Ordered By: Radha Mna Referrals: Nikhil Padilla MD [Physician] - 1-3 days Ulices Gerard DO [Primary Care Provider] - Discharge Diet: Advance as tolerated Discharge Activity: Resume usual activity Patient Instructions: Abdominal Pain (ED) Coding Level of Care Code ED 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
--- NOTE | 2022-05-21 21:02 | ECG_ITS ---
[facility] Test Date: 2022-05-21 Pat Name: Philippe Stewart Department: Room: Gender: Male [employer] Architect: : [id number] Requested By: Radha Man Order Number: [id number] Whitney MD: Lynne Conti M.D. Measurements Intervals [place] Rate: 63 P: 71 NV: 148 QRS: 89 QRSD: 103 T: 55 QT: 413 QTc: 424 Interpretive Statements SINUS RHYTHM Compared to ECG 12/24/2021 09:07:47 Sinus bradycardia no longer present Myocardial infarct finding no longer present Electronically Signed On 05-22-2022 19:03:22 STORAGE CONSULTANT by Lynne Conti M.D. [id number]
[2022-05-21 21:04] LABS: Urine Appearance Clear (CLEAR); Urine Color Yellow (Yellow)
[2022-05-21 21:05] LABS: Bilirubin Urine Neg (Negative); Blood Urine Neg (Negative); Glucose Urine UA Norm (Normal); Ketones Urine Negative (Negative); Leukocyte Esterase Urine Negative (Negative); Nitrate Urine Negative (Negative); Protein Urine Neg (Negative); Specific Gravity, Urine 1.015 (1.005-1.030); Urobilinogen Urine Norm (Negative); pH Urine 8 (5-7)
[2022-05-21] MEDS: HYDROcodone-acetaminophen 5-325 mg Tablet 1 TAB PO (21:11)
[2022-05-21] MEDS: ondansetron 4 MG Tablet PO (21:11)
[2022-05-21 21:12] VITALS: BP 138/85; PULSE 64; RESP 16; O2SAT 99
[2022-05-21 21:32] VITALS: BP 142/86; PULSE 64; RESP 15; O2SAT 99
== END 2022-05-21 21:34 | disposition home or self-care (01) ==
PROVIDERS: Nurse Practitioner Family; Emergency Provider Emergency Medicine; PCP Family Medicine
DX: R10.9 Unspecified abdominal pain (principal); Z79.82 Long term (current) use of aspirin; I10 Essential (primary) hypertension; N40.0 Benign prostatic hyperplasia without lower urinary tract symptoms
CPT/HCPCS: 36415; 80053; 81003; 83690; 85025; 93005; 99284; Q0162

== ENCOUNTER 2022-05-22 21:03 | Emergency (ER) | payer MEDICAID, SELFPAY ==
[2022-05-22 21:10] VITALS: BP 115/80; PULSE 86; RESP 16; TEMP 36.7; O2SAT 99; BMI 19.8
--- NOTE | 2022-05-22 22:14 | ED_ITS ---
HPI - Dizziness General: Chief Complaint: Dizziness Stated Complaint: dizzy Time Seen by Provider: 05/22/22 22:10 Source: patient Mode of arrival: ambulatory Limitations: no limitations History of Present Illness: HPI Narrative: 62-year-old male who was seen here last night discharge he states he has been waiting in the waiting room all day and has not eaten all day and states he has felt dizzy. Patient had just eaten a sandwich 30 minutes ago he states he feels much improved currently has no complaints at this time denies any vomiting denies any chest pain denies any headache denies any difficulty walking denies any fevers. Associated symptoms: Denies chest pain, chills, headache(s), nausea or vomiting Review of Systems Const: Denies: fever(s), chills, body aches or change in appetite Eyes: Denies: blurry vision or eye discomfort ENMT: Denies: throat pain or dental pain Card: Denies: chest pain Resp: Denies: dyspnea GI: Denies: abdominal pain, nausea, vomiting or diarrhea : Denies: dysuria Musc: Denies: neck pain or back pain Skin/Breast: Denies: rash Neuro: Denies: headache(s) Psych: Denies: depression Keyur/Lymph: Denies: easy bruising All/Imm: Denies: urticaria PFSH ED PFSH: Medical History Anemia Back pain BPH (benign prostatic hyperplasia) Hypertension Migraine Psychiatric care Tremor Family History Other Suicide Social History Smoking and tobacco status: never smoked Alcohol intake: never History of recent travel: No Physical Exam Const: COMMON NORMALS: no acute distress, patient oriented x3 and healthy appe aring HENMT: COMMON NORMALS: normocephalic and atraumatic HEAD & SCALP: normocephalic and atraumatic Eye: COMMON NORMALS: Equal, round and reactive pupils present and EOMs intact bilaterally PUPIL: Yes Equal, round and reactive pupils present Neck/C-Spine: COMMON NORMALS: full ROM and supple Chest: COMMONS NORMALS: normal inspection of the chest and normal palpation of entire chest wall Resp: COMMON NORMALS: normal respiratory effort, No retractions, No use of accessory muscles and clear to auscultation bilaterally AUSCULTATION: clear to auscultation bilaterally Cardio: COMMON NORMALS: regular rate, regular rhythm and No murmurs present (Cardio) RATE: regular rate RHYTHM: regular rhythm GI: COMMON NORMALS: Normal to inspection, nondistended, normoactive bowel sounds present, Soft to palpation, non-tender and no masses PALPATION: Yes Soft to palpation Extremity: COMMON NORMALS: normal to inspection and full ROM Neuro: COMMON NORMALS: patient oriented x3, moves all extremities and no focal motor deficits Psych: COMMON NORMALS: mental status grossly normal, Normal thought process present and cooperative THOUGHT PROCESS: Normal thought process present Skin: COMMON NORMALS: no rashes or lesions noted and no wounds GENERAL SKIN EXAM: no rashes or lesions noted Course Vital Signs: Vital signs: Vital Signs Temperature 98.1 F 05/22/22 21:10 Pulse Rate 82 05/22/22 22:20 Respiratory Rate 16 05/22/22 22:20 Blood Pressure 115/80 05/22/22 21:10 Pulse Oximetry 99 05/22/22 22:20 Oxygen Delivery Me thod 05/22/22 21:10 MDM - Dizziness Medical Decision Making Patient presents here with dizziness likely from not eating all day feels much improved here after he ate a sandwich he is well-appearing here vitals are normal he is stable for discharge he is to follow-up with PCP and return if worsening Discharge Plan Discharge Patient Disposition: Home Clinical Impression: Dizziness Condition: Stable Prescriptions: No Action Excedrin Extra Strength 250-250-65 mg tablet 1 tab PO Q6H PRN Complete Nutritional Drink 0.04-1.05 gram-kcal/mL liquid PO DAILY Botox 100 unit recon soln 200 unit IM .month docusate sodium 100 mg capsule 100 mg PO BID PRN (Reason: Constipation) acetaminophen [Tylenol Extra Strength] 500 mg tablet 500 mg PO Q4H PRN (Reason: Pain, Mild) chlorpromazine 10 mg tablet 10 mg PO TID Qty: 90 3RF cyclobenzaprine 10 mg tablet 10 mg PO BID PRN (Reason: Muscle Spasm) Qty: 60 3RF ferrous sulfate 325 mg (65 mg iron) tablet 325 mg PO DAILY Qty: 60 3RF sucralfate 1 gram tablet 1 g PO .before meals and at Qty: 120 11RF ondansetron HCl 8 mg tablet 8 mg PO Q8H PRN (Reason: nausea) Qty: 30 0RF tamsulosin 0.4 mg capsule See Rx Instructions .ROUTE .COMPLEX Qty: 60 11RF Dose Instruction: TAKE 2 CAPSULES BY MOUTH ONCE DAILY Rx Instructions: TAKE 2 CAPSULES BY MOUTH ONCE DAILY finasteride 5 mg tablet See Rx Instructions .ROUTE .COMPLEX Qty: 30 11RF Dose Instruction: TAKE ONE TABLET BY MOUTH ONCE DAILY Rx Instructions: TAKE ONE TABLET BY MOUTH ONCE DAILY amitriptyline 75 mg tablet 75 mg PO DAILY Qty: 30 11RF tramadol 50 mg tablet 50 mg PO DAILY PRN (Reason: pain) Qty: 30 0RF topiramate 50 mg tablet 50 mg PO BID Qty: 60 11RF propranolol 20 mg tablet 10 mg PO BID Qty: 60 11RF Hold Instructions: Doctor's Order polyethylene glycol 3350 [Miralax] 17 gram/dose powder 4 g PO DAILY pantoprazole [Protonix] 40 mg tablet,delayed release (DR/EC) 40 mg PO DAILY Qty: 90 1RF Protonix 40 mg tablet,delayed release (DR/EC) 40 mg PO DAILY Qty: 60 0RF aspirin 81 mg tablet,delayed release (DR/EC) 81 mg PO DAILY Qty: 30 0RF Discharge Orders: Discharge ED (Routine); Ordered 05/22/22 Ordered By: Radha Man Referrals: Ulices Gerard DO [Primary Care Provider] - 1-3 days Discharge Diet: Advance as tolerated Discharge Activity: Resume usual activity Patient Instructions: Dizziness (ED) Coding Level of Care Code ED B2B 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
[2022-05-22 22:20] VITALS: PULSE 82; RESP 16; O2SAT 99
== END 2022-05-22 22:00 | disposition home or self-care (01) ==
PROVIDERS: Emergency Provider Emergency Medicine; PCP Family Medicine
DX: R42 Dizziness and giddiness (principal); Z79.82 Long term (current) use of aspirin; I10 Essential (primary) hypertension; N40.0 Benign prostatic hyperplasia without lower urinary tract symptoms
CPT/HCPCS: 99282

== ENCOUNTER → 2022-06-25 10:04 | Outpatient (BNVA) | payer MEDICAID, SELFPAY | PROVIDERS: PCP Family Medicine; Visit Provider Family Medicine | DX: R05.9 Cough, unspecified (principal); Z20.822 Contact with and (suspected) exposure to COVID-19 | CPT/HCPCS: 87426 ==

== ENCOUNTER 2022-07-08 20:43 | Emergency (ER) | payer MEDICAID, SELFPAY ==
[2022-07-08 21:25] VITALS: BP 138/85; PULSE 67; RESP 15; TEMP 36.8; O2SAT 100; BMI 20.5
[2022-07-08 22:50] LABS: Basophils # 0.1 10^3/uL (0.0-0.1); Basophils % 0.8 %; Eosinophils # 0.2 10^3/uL (0.0-0.8); Eosinophils % 2.9 %; Hematocrit 44.9 % (42.0-52.0); Hemoglobin 14.2 g/dL (11.7-16.6); Lymphocytes # 1.5 10^3/uL (0.8-4.8); Lymphocytes % 20.6 %; Mean Corpuscular HGB Conc 31.6 g/dL (30.0-36.0); Mean Corpuscular Hemoglobin 26.8 pg (28.0-34.0); Mean Corpuscular Volume 84.9 fl (80-94); Mean Platelet Volume 10.1 fL (7.4-10.4); Monocytes # 0.4 10^3/uL (0.2-0.9); Monocytes % 4.8 %; Neutrophils # 5.14 10^3/uL (1.8-7.7); Neutrophils % 70.8 %; Nucleated Red Blood Cells % 0 %; Platelet Count 220 10^3/cmm (130-400); Red Blood Count 5.29 10^6/uL (4.1-5.3); Red Cell Distribution Width 16.2 % (12.1-15.1); White Blood Count 7.3 10^3/uL (4.0-10.0)
[2022-07-08 23:11] LABS: Alanine Aminotransferase 9 U/L (0-41); Albumin Level 4.7 g/dL (3.5-5.2); Alkaline Phosphatase 61 U/L (40-130); Anion Gap 12.6 (5-19); Aspartate Amino Transferase 13 U/L (0-40); Blood Urea Nitrogen 18 mg/dL (8-23); Calcium 9.1 mg/dL (8.5-10.5); Carbon Dioxide 26 mmol/L (22-29); Chloride 105 mmol/L (98-107); Creatinine Clr Calc Pharmacy 99.7933; Globulin 2.7 g/dL (1.3-4.6); Glomerular Filtration Rate 98.6 mL/min (90-130); Glucose 107 mg/dL (65-115); Lipase 86 U/L (13-60); Osmolality Calculated 292 mOsm/kg (285-295); Potassium 3.6 mmol/L (3.5-5.1); Sodium 140 mmol/L (136-145); Total Bilirubin 0.3 mg/dL (0.15-1.2); Total Protein 7.4 g/dL (6.6-8.7)
--- NOTE | 2022-07-08 23:12 | XRR_ITS ---
PROCEDURE INFORMATION: Exam: XR Chest Exam date and time: 07/09/2022 12:29 AM Age: 62 years old Clinical indication: Pain; Chest pressure; Patient HX: C/O chest discomfort. ; Additional info: Abdominal pain and chest pain TECHNIQUE: Imaging protocol: Radiologic exam of the chest. Views: 2 views. COMPARISON: CR XR chest 1V portable [id number] 12/24/2021 7:58 AM FINDINGS: Lungs: Unremarkable. No consolidation. Pleural spaces: Unremarkable. No pleural effusion. No pneumothorax. Heart/Mediastinum: Unremarkable. No cardiomegaly. Bones/joints: Unremarkable. XR/XR chest 2V* [id number] IMPRESSION: No acute findings.
--- NOTE | 2022-07-09 00:19 | W.ED.ABDPA2 ---
Documented by User: FREYA Watts 07/09/22 03:10 HPI - Abdominal Pain General: Chief Complaint: Abdominal Pain Stated Complaint: LUQ pain Time Seen by Provider: 07/08/22 22:47 History of Present Illness: Patient is in today for abdominal pain. He reports that he has a history of abdominal pain because he has ulcers that flareup at times. He reports that this seems similar but he has been having chest pain for the last 2 days. He reports that chest pain has been on the left side of his chest and also his epigastric region and left upper quadrant abdomen. He reports that it comes and goes lasting approximately 5 to 6 minutes each time. He denies any associated shortness of breath. He denies nausea, vomiting, diarrhea, constipation. He denies fever, chills. He denies any current chest pain. He reports only epigastric pain at this time. 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 Associated Symptoms: Denies chills, constipation, diarrhea, dysuria, fever(s), nausea and vomiting Review of Systems Const: Denies: fever(s) or chills Card: Reports: chest pain; Denies: palpitations or irregular heart rhythm Resp: Denies: dyspnea, productive cough or non-productive cough GI: Reports: abdominal pain; Denies: nausea, vomiting, diarrhea or constipation : Denies: flank pain, difficulty urinating or dysuria Neuro: Denies: headache(s), numbness in extremities or weakness in extremities PFSH ED PFSH: Medical History Anemia Back pain BPH (benign prostatic hyperplasia) Hypertension Migraine Psychiatric care Tremor Family History Other Suicide Social History Smoking and tobacco status: never smoked Alcohol intake: never History of recent travel: No Physical Exam Const: COMMON NORMALS: no acute distress, patient oriented x3 and alert Neck/C-Spine: COMMON NORMALS: no JVD Resp: COMMON NORMALS: normal respiratory effort, No use of accessory muscles and clear to auscultation bilaterally AUSCULTATION: clear to auscultation bilaterally Cardio: COMMON NORMALS: no JVD, regular rate, regular rhythm, S1 normal heart sound present, S2 normal heart sound present and No murmurs present (Cardio) RATE: regular rate RHYTHM: regular rhythm HEART SOUNDS: S1 normal heart sound present and S2 normal heart sound present GI: COMMON NORMALS: Soft to palpation INSPECTION: Yes normal to inspection AUSCULTATION: Yes normoactive bowel sounds PALPATION: Yes Soft to palpation and Yes Tenderness to palpation present (GI) (Epigastric) Details: LUQ OTHER: Palpation of epigastric region reproduces pain complaint. : COMMON NORMALS: Yes no CVA tenderness BLADDER/KIDNEY EXAM: Yes no CVA tenderness Back/Pelvis: COMMON NORMALS: no CVA tenderness Neuro: COMMON NORMALS: patient oriented x3, moves all extremities and no focal motor deficits SENSORIUM/ORIENTATION: Yes alert Course ED course: 0?patient reports resolution of pain symptoms after GI cocktail administered 0142-I spoke with Dr. Man regarding patient CT abdomen results who advised that I contact surgeon on-call which is Dr. Perla. Dr. Perla was paged. [phone]?Dr. Perla said that he does not do gastric surgery he recommended transfer patient to in [place]. [phone]?paged [facility] 0209?Julee from the transfer center called and got an update on the patient said that she would call back [phone]?spoke with [facility] GI physician who wanted to accept the patient for transfer with NG to decompress stomach and upper GI scope to be done there to evaluate for obstruction. While I was speaking to the GI physician the bed coordinator interrupted and advised that there were no beds at [facility]. GI physician recommended transfer to another facility. [phone]-paged [facility]. I spoke with Dr. Man regarding patient case and no beds at [facility]. He had recommended checking with [facility]. NG tube ordered to acutely decompress patient's stomach. I went in and spoke with patient regarding CT findings and plan of care. He advised that he has no pain at this time. His vital signs are stable and he is in no acute distress. We will place NG and acutely decompress the stomach. Vital Signs: Vital signs: Vital Signs Temperature 98.3 F 07/08/22 21:25 Pulse Rate 67 07/08/22 21:25 Respiratory Rate 15 07/08/22 21:25 Blood Pressure 138/85 07/08/22 21:25 Pulse Oximetry 100 07/08/22 21:25 Oxygen Delivery Me thod 07/08/22 21:25 MDM - Abdominal Pain Medical Records Consider abdominal pain, ulcer, constipation, urinary tract infection, renal stone, gastric outlet obstruction Patient has ongoing history of abdominal pain. He has been seen numerous times at numerous facilities. He was treated inpatient for gastric outlet obstruction?he was transferred from here to an outside facility. Patient has a history of a cholecystectomy. Lipase is elevated in the ER today. Patient physical exam findings are consistent with pain reproducible with palpation of the epigastric region and left upper abdominal quadrant. Patient had reported off-and-on chest pain x2 days but denies any chest pain while present in the ER. GI cocktail helped to resolve patient's abdominal pain. CT was ordered for further evaluation given patient's elevated lipase and history of gastric outlet obstruction. CT findings are consistent with a large stomach measuring up to 20 cm in the coronal plane radiologist advise GI consultation concern for developing gastric outlet obstruction at the anastomosis also gastritis's. Patient reports improvement of abdominal pain after GI cocktail. Lab Data 07/08/22 22:36 07/08/22 22:36 Labs/Radiology: Radiology Impressions Abdomen/Pelvis CT 07/09/22 00:24 IMPRESSION: 1. Complex surgical patient. The findings are compared to 12/24/2021. 2. Very large stomach again seen with greater curvature mucosal thickening and adjacent postop findings. The gastric distention has progressed. Advise GI consultation. Developing gastric outlet obstruction at the anastomosis is possible. Gastritis is also likely. 3. Advanced constipation. 4. No small bowel obstruction, abscess or free air. 5. Nonspecific bladder wall thickening. COMMENTS: Consistent with the [employer]'s Incidental Findings Committee white paper (J Am Rashida Radiol 2018): Any incidental renal lesion less than 1 cm or classified as too small to characterize, or any incidental cystic renal lesion characterized as simple-appearing, is likely benign. No follow-up imaging is recommended for these lesions per consensus recommendations based on imaging criteria. Chest X-Ray 07/09/22 04:05 IMPRESSION: 1. No acute findings. 2. NGT in place, tip is in the gastric body area inferiorly. Laboratory Results WBC 7.3 10^3/uL (4.0-10.0) 07/08/22 22:36 RBC 5.29 10^6/uL (4.1-5.3) 07/08/22 22:36 Hgb 14.2 g/dL (11.7-16.6) 07/08/22 22:36 Hct 44.9 % (42.0-52.0) 07/08/22 22:36 MCV 84.9 fl (80-94) 07/08/22 22:36 MCH 26.8 pg (28.0-34.0) L 07/08/22 22:36 MCHC 31.6 g/dL (30.0-36.0) 07/08/22 22:36 RDW 16.2 % (12.1-15.1) H 07/08/22 22:36 Plt Count 220 10^3/cmm (130-400) 07/08/22 22:36 MPV 10.1 fL (7.4-10.4) 07/08/22 22:36 Neut % (Auto) 70.8 % 07/08/22 22:36 Lymph % (Auto) 20.6 % 07/08/22 22:36 [place] % (Auto) 4.8 % 07/08/22 22:36 Eos % (Auto) 2.9 % 07/08/22 22:36 Baso % (Auto) 0.8 % 07/08/22 22:36 Neut # (Auto) 5.14 10^3/uL (1.8-7.7) 07/08/22 22:36 Lymph # (Auto) 1.5 10^3/uL (0.8-4.8) 07/08/22 22:36 [place] # (Auto) 0.4 10^3/uL (0.2-0.9) 07/08/22 22:36 Eos # (Auto) 0.2 10^3/uL (0.0-0.8) 07/08/22 22:36 Baso # (Auto) 0.1 10^3/uL (0.0-0.1) 07/08/22 22:36 Nucleated RBC % (auto) 0 % 07/08/22: Nucleated RBCs # 0.0 /100WBC 07/08/22 22:36 Sodium 140 mmol/L (136-145) 07/08/22 22:36 Potassium 3.6 mmol/L (3.5-5.1) 07/08/22 22:36 Chloride 105 mmol/L (98-107) 07/08/22 22:36 Carbon Dioxide 26 mmol/L (22-29) 07/08/22 22:36 Anion Gap 12.6 (5-19) 07/08/22 22:36 BUN 18 mg/dL (8-23) 07/08/22 22:36 Creatinine 0.8 mg/dL (0.7-1.2) 07/08/22 22:36 GFR Calculation 98.6 mL/min (90-130) 07/08/22 22:36 Glucose 107 mg/dL (65-115) 07/08/22 22:36 Calculated Osmolality 292 mOsm/kg (285-295) 07/08/22 22:36 Calcium 9.1 mg/dL (8.5-10.5) 07/08/22 22:36 Total Bilirubin 0.3 mg/dL (0.15-1.2) 07/08/22 22:36 AST 13 U/L (0-40) 07/08/22 22:36 ALT 9 U/L (0-41) 07/08/22 22:36 Alkaline Phosphatase 61 U/L (40-130) 07/08/22 22:36 Total Protein 7.4 g/dL (6.6-8.7) 07/08/22 22:36 Albumin 4.7 g/dL (3.5-5.2) 07/08/22 22:36 Globulin 2.7 g/dL (1.3-4.6) 07/08/22 22:36 Lipase 86 U/L (13-60) H 07/08/22 22:36 Discharge Plan Discharge Patient Disposition: Admitted As Inpatient Clinical Impression: Abdominal pain, Gastric outlet obstruction Condition: Stable Prescriptions: No Action Excedrin Extra Strength 250-250-65 mg tablet 1 tab PO Q6H PRN Complete Nutritional Drink 0.04-1.05 gram-kcal/mL liquid PO DAILY Botox 100 unit recon soln 200 unit IM .month docusate sodium 100 mg capsule 100 mg PO BID PRN (Reason: Constipation) acetaminophen [Tylenol Extra Strength] 500 mg tablet 500 mg PO Q4H PRN (Reason: Pain, Mild) cyclobenzaprine 10 mg tablet 10 mg PO BID PRN (Reason: Muscle Spasm) Qty: 60 3RF ferrous sulfate 325 mg (65 mg iron) tablet 325 mg PO DAILY Qty: 60 3RF sucralfate 1 gram tablet 1 g PO .before meals and at Qty: 120 11RF ondansetron HCl 8 mg tablet 8 mg PO Q8H PRN (Reason: nausea) Qty: 30 0RF tamsulosin 0.4 mg capsule See Rx Instructions .ROUTE .COMPLEX Qty: 60 11RF Dose Instruction: TAKE 2 CAPSULES BY MOUTH ONCE DAILY Rx Instructions: TAKE 2 CAPSULES BY MOUTH ONCE DAILY finasteride 5 mg tablet See Rx Instructions .ROUTE .COMPLEX Qty: 30 11RF Dose Instruction: TAKE ONE TABLET BY MOUTH ONCE DAILY Rx Instructions: TAKE ONE TABLET BY MOUTH ONCE DAILY topiramate 50 mg tablet 50 mg PO BID Qty: 60 11RF polyethylene glycol 3350 [Miralax] 17 gram/dose powder 4 g PO DAILY tramadol 50 mg tablet 50 mg PO DAILY PRN (Reason: pain) Qty: 30 0RF aspirin 81 mg tablet,delayed release (DR/EC) 81 mg PO DAILY Qty: 30 12RF amitriptyline 75 mg tablet 75 mg PO DAILY Qty: 90 3RF chlorpromazine 10 mg tablet 10 mg PO TID Qty: 30 0RF propranolol 10 mg tablet 10 mg PO BID Qty: 60 1RF Protonix 40 mg tablet,delayed release (DR/EC) 40 mg PO DAILY Qty: 60 0RF Referrals: Ulices Gerard DO [Primary Care Provider] - Coding Level of Care Code ED Health Care Administrator for Chg Fwd Exam Detailed Documented by User: Radha Man MD 07/09/22 05:06 HPI - Abdominal Pain General: Chief Complaint: Abdominal Pain Stated Complaint: LUQ pain Time Seen by Provider: 07/08/22 22:47 PFSH ED PFSH: Medical History Anemia Back pain BPH (benign prostatic hyperplasia) Hypertension Migraine Psychiatric care Tremor Family History Other Suicide Social History Smoking and tobacco status: never smoked Alcohol intake: never History of recent travel: No Course Vital Signs: Vital signs: Vital Signs Temperature 98.3 F 07/08/22 21:25 Pulse Rate 67 07/08/22 21:25 Respiratory Rate 15 07/08/22 21:25 Blood Pressure 138/85 07/08/22 21:25 Pulse Oximetry 100 07/08/22 21:25 Oxygen Delivery Me thod 07/08/22 21:25 MDM - Abdominal Pain Medical Decision Making Patient presents for gastric outlet obstruction patient CT scan here shows the possible developing gastric outlet has had surgery before for peptic ulcer he had NG tube placed here with decompression I spoke to surgeon Dr. Perla who recommended transfer to her GI capabilities I did speak to [facility] spoke to the hospitalist there along with GI physician and will transfer there for higher level of care Medical Records Consider abdominal pain, ulcer, constipation, urinary tract infection, renal stone, gastric outlet obstruction Patient has ongoing history of abdominal pain. He has been seen numerous times at numerous facilities. He was treated inpatient for gastric outlet obstruction?he was transferred from here to an outside facility. Patient has a history of a cholecystectomy. Lipase is elevated in the ER today. Patient physical exam findings are consistent with pain reproducible with palpation of the epigastric region and left upper abdominal quadrant. Patient had reported off-and-on chest pain x2 days but denies any chest pain while present in the ER. GI cocktail helped to resolve patient's abdominal pain. CT was ordered for further evaluation given patient's elevated lipase and history of gastric outlet obstruction. CT findings are consistent with a large stomach measuring up to 20 cm in the coronal plane radiologist advise GI consultation concern for developing gastric outlet obstruction at the anastomosis also gastritis's. Patient reports improvement of abdominal pain after GI cocktail. Patient presents for gastric outlet obstruction patient CT scan here shows the possible developing gastric outlet has had surgery before for peptic ulcer he had NG tube placed here with decompression I spoke to surgeon Dr. Perla who recommended transfer to her GI capabilities I did speak to [facility] spoke to the hospitalist there along with GI physician and will transfer there for higher level of care. Lab Data 07/08/22 22:36 07/08/22 22:36 Labs/Radiology: Radiology Impressions Abdomen/Pelvis CT 07/09/22 00:24 IMPRESSION: 1. Complex surgical patient. The findings are compared to 12/24/2021. 2. Very large stomach again seen with greater curvature mucosal thickening and adjacent postop findings. The gastric distention has progressed. Advise GI consultation. Developing gastric outlet obstruction at the anastomosis is possible. Gastritis is also likely. 3. Advanced constipation. 4. No small bowel obstruction, abscess or free air. 5. Nonspecific bladder wall thickening. COMMENTS: Consistent with the [employer]'s Incidental Findings Committee white paper (J Am Rashida Radiol 2018): Any incidental renal lesion less than 1 cm or classified as too small to characterize, or any incidental cystic renal lesion characterized as simple-appearing, is likely benign. No follow-up imaging is recommended for these lesions per consensus recommendations based on imaging criteria. Chest X-Ray 07/09/22 04:05 IMPRESSION: 1. No acute findings. 2. NGT in place, tip is in the gastric body area inferiorly. Laboratory Results WBC 7.3 10^3/uL (4.0-10.0) 07/08/22 22:36 RBC 5.29 10^6/uL (4.1-5.3) 07/08/22 22:36 Hgb 14.2 g/dL (11.7-16.6) 07/08/22 22:36 Hct 44.9 % (42.0-52.0) 07/08/22 22:36 MCV 84.9 fl (80-94) 07/08/22 22:36 MCH 26.8 pg (28.0-34.0) L 07/08/22 22:36 MCHC 31.6 g/dL (30.0-36.0) 07/08/22 22:36 RDW 16.2 % (12.1-15.1) H 07/08/22 22:36 Plt Count 220 10^3/cmm (130-400) 07/08/22 22:36 MPV 10.1 fL (7.4-10.4) 07/08/22 22:36 Neut % (Auto) 70.8 % 07/08/22 22:36 Lymph % (Auto) 20.6 % 07/08/22 22:36 [place] % (Auto) 4.8 % 07/08/22 22:36 Eos % (Auto) 2.9 % 07/08/22 22:36 Baso % (Auto) 0.8 % 07/08/22 22:36 Neut # (Auto) 5.14 10^3/uL (1.8-7.7) 07/08/22 22:36 Lymph # (Auto) 1.5 10^3/uL (0.8-4.8) 07/08/22 22:36 [place] # (Auto) 0.4 10^3/uL (0.2-0.9) 07/08/22 22:36 Eos # (Auto) 0.2 10^3/uL (0.0-0.8) 07/08/22 22:36 Baso # (Auto) 0.1 10^3/uL (0.0-0.1) 07/08/22 22:36 Nucleated RBC % (auto) 0 % 07/08/22 22:36 Nucleated RBCs # 0.0 /100WBC 07/08/22 22:36 Sodium 140 mmol/L (136-145) 07/08/22 22:36 Potassium 3.6 mmol/L (3.5-5.1) 07/08/22 22:36 Chloride 105 mmol/L (98-107) 07/08/22 22:36 Carbon Dioxide 26 mmol/L (22-29) 07/08/22 22:36 Anion Gap 12.6 (5-19) 07/08/22 22:36 BUN 18 mg/dL (8-23) 07/08/22 22:36 Creatinine 0.8 mg/dL (0.7-1.2) 07/08/22 22:36 GFR Calculation 98.6 mL/min (90-130) 07/08/22 22:36 Glucose 107 mg/dL (65-115) 07/08/22 22:36 Calculated Osmolality 292 mOsm/kg (285-295) 07/08/22 22:36 Calcium 9.1 mg/dL (8.5-10.5) 07/08/22 22:36 Total Bilirubin 0.3 mg/dL (0.15-1.2) 07/08/22 22:36 AST 13 U/L (0-40) 07/08/22 22:36 ALT 9 U/L (0-41) 07/08/22 22:36 Alkaline Phosphatase 61 U/L (40-130) 07/08/22 22:36 Total Protein 7.4 g/dL (6.6-8.7) 07/08/22 22:36 Albumin 4.7 g/dL (3.5-5.2) 07/08/22 22:36 Globulin 2.7 g/dL (1.3-4.6) 07/08/22 22:36 Lipase 86 U/L (13-60) H 07/08/22 22:36 Discharge Plan Discharge Patient Disposition: Admitted As Inpatient Clinical Impression: Abdominal pain, Gastric outlet obstruction Condition: Stable Prescriptions: No Action Excedrin Extra Strength 250-250-65 mg tablet 1 tab PO Q6H PRN Complete Nutritional Drink 0.04-1.05 gram-kcal/mL liquid PO DAILY Botox 100 unit recon soln 200 unit IM .month docusate sodium 100 mg capsule 100 mg PO BID PRN (Reason: Constipation) acetaminophen [Tylenol Extra Strength] 500 mg tablet 500 mg PO Q4H PRN (Reason: Pain, Mild) cyclobenzaprine 10 mg tablet 10 mg PO BID PRN (Reason: Muscle Spasm) Qty: 60 3RF ferrous sulfate 325 mg (65 mg iron) tablet 325 mg PO DAILY Qty: 60 3RF sucralfate 1 gram tablet 1 g PO .before meals and at Qty: 120 11RF ondansetron HCl 8 mg tablet 8 mg PO Q8H PRN (Reason: nausea) Qty: 30 0RF tamsulosin 0.4 mg capsule See Rx Instructions .ROUTE .COMPLEX Qty: 60 11RF Dose Instruction: TAKE 2 CAPSULES BY MOUTH ONCE DAILY Rx Instructions: TAKE 2 CAPSULES BY MOUTH ONCE DAILY finasteride 5 mg tablet See Rx Instructions .ROUTE .COMPLEX Qty: 30 11RF Dose Instruction: TAKE ONE TABLET BY MOUTH ONCE DAILY Rx Instructions: TAKE ONE TABLET BY MOUTH ONCE DAILY topiramate 50 mg tablet 50 mg PO BID Qty: 60 11RF polyethylene glycol 3350 [Miralax] 17 gram/dose powder 4 g PO DAILY tramadol 50 mg tablet 50 mg PO DAILY PRN (Reason: pain) Qty: 30 0RF aspirin 81 mg tablet,delayed release (DR/EC) 81 mg PO DAILY Qty: 30 12RF amitriptyline 75 mg tablet 75 mg PO DAILY Qty: 90 3RF chlorpromazine 10 mg tablet 10 mg PO TID Qty: 30 0RF propranolol 10 mg tablet 10 mg PO BID Qty: 60 1RF Protonix 40 mg tablet,delayed release (DR/EC) 40 mg PO DAILY Qty: 60 0RF Referrals: Ulices Gerard, [Primary Care Provider] - Coding Level of Care Code ED Health Care Administrator for Chg Fwd Exam Detailed
[2022-07-09] MEDS: lidocaine 2% viscous 15 ML, aluminum-mag hydrox-simethicon 30 ML, sucralfate oral liq 1 GM PO (00:23)
--- NOTE | 2022-07-09 00:24 | CTR_ITS ---
PROCEDURE INFORMATION: Exam: CT Abdomen And Pelvis With Contrast Exam date and time: 07/09/2022 1:16 AM Age: 62 years old Clinical indication: Abdominal pain; Localized; Left upper quadrant (luq); Prior surgery; Surgery type: Gb. Gastric for ulcer. Patient HX: C/O luq pain with elevated lipase. ; Additional info: Abdominal pain, elevated lipase previous cholecystectomy. TECHNIQUE: Imaging protocol: Computed tomography of the abdomen and pelvis with contrast. Radiation optimization: All CT scans at this facility use at least one of these dose optimization techniques: automated exposure control; mA and/or kV adjustment per patient size (includes targeted exams where dose is matched to clinical indication); or iterative reconstruction. Contrast material: OMNI 350; Contrast volume: 100 ml; Contrast route: INTRAVENOUS (IV); COMPARISON: CT abdomen pelvis wo con [id number] 12/24/2021 12:53 AM RADIATION DOSE METRICS: Total DLP (mGy-cm): 358.33 FINDINGS: Lungs: Minimal left lung base atelectasis or scarring. Liver: Unremarkable. No enhancing mass. Gallbladder and bile ducts: Absent gallbladder. Pancreas: Atrophic with no suspicious mass. No ductal dilation. Spleen: The spleen is not enlarged. No suspicious enhancing mass is noted. Adrenal glands: Normal. No mass. Kidneys and ureters: Multiple tiny bilateral renal cysts are present. These measure up to about 2.1 cm. No hydronephrosis. Stomach and bowel: The stomach is large and distended. Greater curvature postop findings. This likely pertains to gastrojejunal anastomosis. Fecal filled colon. No small bowel obstruction, abscess or free air. Distal small bowel postop changes. In the coronal plane, the stomach dilates up to about 20 cm. Appendix: Likely absent appendix. Intraperitoneal space: See Stomach and bowel finding. Vasculature: No AAA or acute vascular lesion identified. Lymph nodes: No enlarged lymph nodes. Urinary bladder: Moderate bladder wall thickening. Reproductive: Unremarkable as visualized. Bones/joints: Mild spine DJD. Soft tissues: No acute or suspicious finding noted. Other findings: Along the greater curvature there is mucosal thickening. This configuration is similar to 12/24/2021. CT/CT abdomen pelvis w con* [id number] IMPRESSION: 1. Complex surgical patient. The findings are compared to 12/24/2021. 2. Very large stomach again seen with greater curvature mucosal thickening and adjacent postop findings. The gastric distention has progressed. Advise GI consultation. Developing gastric outlet obstruction at the anastomosis is possible. Gastritis is also likely. 3. Advanced constipation. 4. No small bowel obstruction, abscess or free air. 5. Nonspecific bladder wall thickening. COMMENTS: Consistent with the [employer]'s Incidental Findings Committee white paper (J Am Rashida Radiol 2018): Any incidental renal lesion less than 1 cm or classified as too small to characterize, or any incidental cystic renal lesion characterized as simple-appearing, is likely benign. No follow-up imaging is recommended for these lesions per consensus recommendations based on imaging criteria.
[2022-07-09] MEDS: iohexol 350 mg/mL 500 mL Btl (per mL) IV (01:18)
--- NOTE | 2022-07-09 04:05 | XRR_ITS ---
PROCEDURE INFORMATION: Exam: XR Chest Exam date and time: 07/09/2022 4:08 AM Age: 62 years old Clinical indication: Device placement; Ng tube; Prior surgery; Surgery type: Gastric anastamosis. Gb. Patient HX: Check S/P ng placement. ; Additional info: Ng tube placement TECHNIQUE: Imaging protocol: Radiologic exam of the chest. Views: 1 view. COMPARISON: CR (CHEST, ) 07/09/2022 12:29 AM FINDINGS: Tubes, catheters and devices: NGT in place, tip is in the gastric body area inferiorly. Lungs: A few minute calcified lung nodules are seen incidentally. No consolidation. Minimal left basilar atelectasis or scarring. Pleural spaces: Unremarkable. No pleural effusion. No pneumothorax. Heart/Mediastinum: Unremarkable. No cardiomegaly. Bones/joints: Unremarkable. Organs: Absent gallbladder. XR/XR chest 1V portable [id number] IMPRESSION: 1. No acute findings. 2. NGT in place, tip is in the gastric body area inferiorly.
[2022-07-09 05:40] VITALS: BP 172/99; PULSE 64; O2SAT 100
[2022-07-09 09:08] VITALS: BP 163/96; O2SAT 99
[2022-07-09 09:30] VITALS: BP 163/96; O2SAT 100
== END 2022-07-09 10:15 | disposition admitted as inpatient to this hospital (09) ==
PROVIDERS: Emergency Provider Emergency Medicine; PCP Family Medicine
DX: K31.1 Adult hypertrophic pyloric stenosis (principal); Z79.82 Long term (current) use of aspirin; I10 Essential (primary) hypertension
CPT/HCPCS: 36415; 71045; 71046; 74177; 80053; 83690; 85025; 99285; Q9967

== ENCOUNTER → 2023-12-28 11:00 | Outpatient (BNVA) | payer MEDICAID, SELFPAY | PROVIDERS: PCP Family Medicine; Visit Provider Nurse Practitioner Family | DX: I10 Essential (primary) hypertension (principal); D50.9 Iron deficiency anemia, unspecified; M54.50 Low back pain, unspecified; G89.29 Other chronic pain; N40.0 Benign prostatic hyperplasia without lower urinary tract symptoms; D50.8 Other iron deficiency anemias; Z79.899 Other long term (current) drug therapy | CPT/HCPCS: 80053; 80061; 82728; 83550; 85025 ==

== ENCOUNTER → 2025-01-19 09:15 | Outpatient (BNVA) | payer MEDICAID, SELFPAY | PROVIDERS: PCP Nurse Practitioner Family; Visit Provider Nurse Practitioner Family | DX: I10 Essential (primary) hypertension (principal) | CPT/HCPCS: 80053; 80061; 82728; 83550 ==